=== PATIENT | male | born 1970 | race Two or more races ===

== ENCOUNTER 2019-05-07 23:43 | Inpatient (IN) | payer SELFPAY ==
[~2019-05-07] VITALS: Ht 180.3 cm; Wt 84.5 kg
[2019-05-08] VITALS (13 sets, daily range): BP systolic 78–112; BP diastolic 36–63
--- NOTE | 2019-05-08 00:19 | PHYS DOC ---
Past Medical History Past Medical History: No Pertinent History Past Surgical History: No Surgical History Alcohol Use: Occasionally Drug Use: None Adult General Chief Complaint Chief Complaint: ABDOMINAL PAIN HPI HPI Patient is a 49 year old presents with persistent right upper quadrant pain, tenderness for the past 24 hours. Pain is worse with palpation eating. Pain is nonradiating chest pain shortness of breath, shoulder back pain. Denies nausea vomiting, shortness of breath. No hematemesis coffee-ground emesis placed. No prior abdominal surgeries. No medications or therapy sticking prior to ED arrival.] Review of Systems Review of Systems Constitutional: Denies fever or chills [] Eyes: Denies change in visual acuity, redness, or eye pain [] HENT: Denies nasal congestion or sore throat [] Respiratory: Denies cough or shortness of breath [] Cardiovascular: No additional information not addressed in HPI [] GI: Denies abdominal pain, nausea, vomiting, bloody stools or diarrhea [] : Denies dysuria or hematuria [] Musculoskeletal: Denies back pain or joint pain [] Integument: Denies rash or skin lesions [] Neurologic: Denies headache, focal weakness or sensory changes [] Endocrine: Denies polyuria or polydipsia [] All other systems were reviewed and found to be within normal limits, except as documented in this note. Current Medications Current Medications Current Medications Medications (Trade) Dose Ordered Sig/Meghann Start Time Stop Time Status Last Admin Dose Admin Iohexol (Omnipaque 300 Mg/ml) 100 ml STK-MED ONCE 05/08/19 01:05 05/08/19 01:06 DC Piperacillin Sod/ Tazobactam Sod 4.5 gm/Sodium Chloride 100 ml @ 200 mls/hr 1X ONCE 05/08/19 02:00 05/08/19 02:29 UNV Allergies Allergies Allergies Coded Allergies Type Severity Reaction Last Updated Verified No Known Drug Allergies 05/07/19 No Physical Exam Physical Exam Constitutional: Well developed, well nourished, no acute distress, non-toxic appearance. [] HENT: Normocephalic, atraumatic, bilateral external ears normal, oropharynx mo ist, no oral exudates, nose normal. [] Eyes: PERRLA, EOMI, conjunctiva normal, no discharge. [] Neck: Normal range of motion, no tenderness, supple, no stridor. [] Cardiovascular:Heart rate regular rhythm, no murmur [] Lungs & Thorax: Bilateral breath sounds clear to auscultation [] Abdomen: Bowel sounds normal, soft, no tenderness, no masses, no pulsatile masses. [] Skin: Warm, dry, no erythema, no rash. [] Back: No tenderness, no CVA tenderness. [] Extremities: No tenderness, no cyanosis, no clubbing, ROM intact, no edema. [] Neurologic: Alert and oriented X 3, normal motor function, normal sensory function, no focal deficits noted. [] Psychologic: Affect normal, judgement normal, mood normal. [] Current Patient Data Vital Signs Vital Signs Date Time Temp Pulse Resp B/P (MAP) Pulse Ox O2 Delivery O2 Flow Rate FiO2 05/07/19 23:57 98.1 60 18 124/63 (83) 98 Room Air 98.1 Lab Values Laboratory Tests Test 05/08/19 00:05 05/08/19 00:15 White Blood Count 14.1 x10^3/uL (4.0-11.0) H Red Blood Count 4.77 x10^6/uL (4.30-5.70) Hemoglobin 14.0 g/dL (13.0-17.5) Hematocrit 40.6 % (39.0-53.0) Mean Corpuscular Volume 85 fL (79-100) Mean Corpuscular Hemoglobin 29 pg (25-35) Mean Corpuscular Hemoglobin Concent 34 g/dL (31-37) Red Cell Distribution Width 13.5 % (11.5-14.5) Platelet Count 256 x10^3/uL (140-400) Neutrophils (%) (Auto) 84 % (31-73) H Lymphocytes (%) (Auto) 8 % (24-48) L Monocytes (%) (Auto) 8 % (0-9) Eosinophils (%) (Auto) 1 % (0-3) Basophils (%) (Auto) 0 % (0-3) Neutrophils # (Auto) 11.9 x10^3/uL (1.8-7.7) H Lymphocytes # (Auto) 1.1 x10^3/uL (1.0-4.8) Monocytes # (Auto) 1.1 x10^3/uL (0.0-1.1) Eosinophils # (Auto) 0.1 x10^3/uL (0.0-0.7) Basophils # (Auto) 0.1 x10^3/uL (0.0-0.2) Sodium Level 139 mmol/L (136-145) Potassium Level 3.4 mmol/L (3.5-5.1) L Chloride Level 104 mmol/L (98-107) Carbon Dioxide Level 27 mmol/L (21-32) Anion Gap 8 (6-14) Blood Urea Nitrogen 10 mg/dL (8-26) Creatinine 0.8 mg/dL (0.7-1.3) Estimated GFR (Cockcroft-Gault) 103.6 BUN/Creatinine Ratio 13 (6-20) Glucose Level 123 mg/dL (70-99) H Calcium Level 8.8 mg/dL (8.5-10.1) Total Bilirubin 0.7 mg/dL (0.2-1.0) Aspartate Amino Transferase (AST) 14 U/L (15-37) L Alanine Aminotransferase (ALT) 17 U/L (16-63) Alkaline Phosphatase 56 U/L (46-116) Troponin I Quantitative < 0.017 ng/mL (0.000-0.055) Total Protein 7.3 g/dL (6.4-8.2) Albumin 3.7 g/dL (3.4-5.0) Albumin/Globulin Ratio 1.0 (1.0-1.7) Lipase 62 U/L (73-393) L Laboratory Tests 05/08/19 00:05 Laboratory Tests 05/08/19 00:15 EKG EKG [EKG: reviewed] Radiology/Procedures Radiology/Procedures [CT abdomen pelvis: Acute cholecystitis per radiology report] Course & Med Decision Making Course & Med Decision Making Pertinent Labs and Imaging studies reviewed. (See chart for details) [IV antibiotics given. Will admit to the hospitalist service with general surgical consult] Dragon Disclaimer Dragon Disclaimer This electronic medical record was generated, in whole or in part, using a voice recognition dictation system. Departure Departure Impression: Primary Impression: Acute cholecystitis Disposition: ADMITTED INPATIENT Condition: NIEVES VERAS DO May 08, 2019 00:19
[2019-05-08 00:24] LABS: BASO # 0.1 x10^3/uL (0.0-0.2); BASO % 0 % (0-3); EOS # 0.1 x10^3/uL (0.0-0.7); EOS % 1 % (0-3); HEMATOCRIT 40.6 % (39.0-53.0); LYMPH # 1.1 x10^3/uL (1.0-4.8); LYMPH % 8 % (24-48); MEAN CORPUSCULAR HEMOGLOBIN 29 pg (25-35); MEAN CORPUSCULAR HGB CONC 34 g/dL (31-37); MEAN CORPUSCULAR VOLUME 85 fL (79-100); MONO # 1.1 x10^3/uL (0.0-1.1); MONO % 8 % (0-9); NEUT # 11.9 x10^3/uL (1.8-7.7); NEUT % 84 % (31-73); PLATELET COUNT 256 x10^3/uL (140-400); RED BLOOD COUNT 4.77 x10^6/uL (4.30-5.70); RED CELL DISTRIBUTION WIDTH 13.5 % (11.5-14.5); WHITE BLOOD COUNT 14.1 x10^3/uL (4.0-11.0)
[2019-05-08 00:26] LABS: CALCIUM 8.8 mg/dL (8.5-10.1); CREATININE 0.8 mg/dL (0.7-1.3); GFR 103.6; POTASSIUM 3.4 mmol/L (3.5-5.1)
[2019-05-08 00:32] LABS: ALBUMIN 3.7 g/dL (3.4-5.0); TOTAL BILIRUBIN 0.7 mg/dL (0.2-1.0); TOTAL PROTEIN 7.3 g/dL (6.4-8.2)
[2019-05-08] MEDS ORDERED: IOHEXOL 300 MG/ML 100ML VIAL. ONE (01:05)
--- NOTE | 2019-05-08 01:49 | RAD ---
CT scan abdomen and pelvis with contrast 05/08/2019 CLINICAL HISTORY: Right upper quadrant abdominal pain. TECHNIQUE: After the intravenous administration of 75 cc of Omnipaque 300, contiguous, 5 mm axial sections were obtained through the abdomen and pelvis. One or more of the following individualized dose reduction techniques were utilized for this study: 1. Automated exposure control. 2. Adjustment of the mA and/or kV according to patient size. 3. Use of iterative reconstruction technique. FINDINGS: Images through the lung bases demonstrate minimal dependent subsegmental atelectasis bilaterally. The liver parenchyma has a decreased attenuation consistent with fatty infiltration. The spleen, pancreas, adrenal glands and kidneys are within normal limits. The abdominal aorta tapers normally. There is no evidence of bowel obstruction. Air and stool is seen throughout the colon. The appendix is well-visualized and is within normal limits. The gallbladder is distended. A 9 mm oval-shaped calcific density is seen in the expected location of the proximal cystic duct. The gallbladder wall is thickened. Pericholecystic fluid is seen. These findings are consistent with acute cholecystitis. The intra and extrahepatic bile ducts are not dilated. Images through the pelvis demonstrate the urinary bladder to be contracted. No free fluid is seen. Minimal S-shaped curvature of the thoracolumbar spine is noted. Degenerative changes are seen involving lower thoracic and mid and lower lumbar spine and both hips. IMPRESSION: Findings are seen consistent with acute cholecystitis. Electronically signed by: Trino Kathleen MD (05/08/2019 1:46 AM) [id number]
--- NOTE | 2019-05-08 01:50 | RAD ---
AP portable chest radiograph 05/08/2019 Clinical History: Chest pain. An AP erect portable digital radiograph of the chest was obtained. The cardiac and mediastinal silhouettes are within normal limits in size and configuration. No acute pulmonary infiltrate is seen. No pleural effusion or pneumothorax is noted. Mild degenerative changes are seen involving the thoracic spine. IMPRESSION: No acute abnormality is seen. Electronically signed by: Trino Kathleen MD (05/08/2019 1:47 AM) [facility]
[2019-05-08] MEDS ORDERED: PIP/TAZO PER PHARMACY MC PRN (02:15)
[2019-05-08] MEDS ORDERED: ONDANSETRON PF 4 MG/2 ML VIAL. IV PRN ×3 (02:15→12:00)
[2019-05-08] MEDS ORDERED: MORPHINE SULFATE 2 MG/ML VIAL. IV PRN ×2 (02:15→09:45)
[2019-05-08] MEDS ORDERED: PIPERACILLIN/TAZOBACTAM 4.5 GM in IV NORMAL SALINE 100ML 100 ML IV ONE (02:30)
[2019-05-08] MEDS: IV NORMAL SALINE 1000ML BAG 1,000 ML IV SCH ×3 (02:37→18:15)
[2019-05-08] MEDS ORDERED: PIPERACILLIN/TAZOBACTAM 4.5 GM in IV NORMAL SALINE 100ML 100 ML IV SCH (06:00)
[2019-05-08] MEDS ORDERED: BUPIVAC MPF-EPI 0.5%-1:200000 30 ML VIAL. ONE (09:00)
[2019-05-08] MEDS ORDERED: GLUCAGON,HUMAN RECOMBINANT 1 MG/ML VIAL. ONE (09:00)
[2019-05-08] MEDS ORDERED: SURGICEL HEMOSTAT 4X8 EACH. ONE (09:00)
[2019-05-08] MEDS ORDERED: IOHEXOL 300 MG/ML 50 ML VIAL. ONE (09:00)
--- NOTE | 2019-05-08 09:02 | PDOC2 ---
CONSULT Date of Consult Date of Consult DATE: 05/08/19 TIME: 08:58 Reason for Consult Reason for Consult: cholelithiasis, acute cholecystitis Referring Physician Referring Physician: NOEMY Identification/Chief Complaint Chief Complaint RUQ pain Source Source: Chart review, Patient History of Present Illness Reason for Visit: Mr Ng is a 49 yo gentleman with acute onset of RUQ pain yesterday early AM. Similar less severe attack a few weeks ago. Past Medical History Cardiovascular: No pertinent hx Pulmonary: No pertinent hx Renal/: No pertinent hx Past Surgical History Past Surgical History: No pertinent history Current Problem List Problem List Problems Medical Problems: (1) Acute cholecystitis Status: Acute Current Medications Current Medications Current Medications Iohexol (Omnipaque 300 Mg/ml) 100 ml STK-MED ONCE .ROUTE ; Start 05/08/19 at 01:05; Stop 05/08/19 at 01:06; Status DC Piperacillin Sod/ Tazobactam Sod 4.5 gm/Sodium Chloride 100 ml @ 200 mls/hr 1X ONCE IV Last administered on 05/08/19at 02:40; Start 05/08/19 at 02:30; Stop 05/08/19 at 02:59; Status DC Ondansetron HCl (Zofran) 4 mg PRN Q8HRS PRN IV NAUSEA/VOMITING; Start 05/08/19 at 02:15; Stop 05/09/19 at 02:14 Morphine Sulfate (Morphine Sulfate) 2 mg PRN Q2HR PRN IV PAIN Last administered on 05/08/19at 02:45; Start 05/08/19 at 02:15; Stop 05/09/19 at 02:14 Sodium Chloride 1,000 ml @ 125 mls/hr Q8H IV Last administered on 05/08/19at 02:37; Start 05/08/19 at 02:15; Stop 05/09/19 at 02:14 Piperacillin Sod/ Tazobactam Sod (Zosyn Per Pharmacy) 1 each PRN DAILY PRN MC S EE COMMENTS; Start 05/08/19 at 02:15 Piperacillin Sod/ Tazobactam Sod 4.5 gm/Sodium Chloride 100 ml @ 200 mls/hr Q6HRS IV Last administered on 05/08/19at 05:49; Start 05/08/19 at 06:00 Allergies Allergies: Coded Allergies: No Known Drug Allergies (Unverified , 05/07/19) ROS Gastrointestinal: Yes Abdominal Pain Physical Exam General: Alert, Oriented X3, No acute distress HEENT: Atraumatic Lungs: Normal air movement Heart: Regular rate Abdomen: Soft, Other (some mild TTP in the RUQ) Skin: Other (warm, dry) Vitals VITALS Vital Signs Date Time Temp Pulse Resp B/P (MAP) Pulse Ox O2 Delivery O2 Flow Rate FiO2 05/08/19 07:00 98.3 54 18 106/60 (75) 95 Room Air 98.3 Labs Labs Laboratory Tests Test 05/08/19 00:05 05/08/19 00:15 White Blood Count 14.1 x10^3/uL (4.0-11.0) Red Blood Count 4.77 x10^6/uL (4.30-5.70) Hemoglobin 14.0 g/dL (13.0-17.5) Hematocrit 40.6 % (39.0-53.0) Mean Corpuscular Volume 85 fL (79-100) Mean Corpuscular Hemoglobin 29 pg (25-35) Mean Corpuscular Hemoglobin Concent 34 g/dL (31-37) Red Cell Distribution Width 13.5 % (11.5-14.5) Platelet Count 256 x10^3/uL (140-400) Neutrophils (%) (Auto) 84 % (31-73) Lymphocytes (%) (Auto) 8 % (24-48) Monocytes (%) (Auto) 8 % (0-9) Eosinophils (%) (Auto) 1 % (0-3) Basophils (%) (Auto) 0 % (0-3) Neutrophils # (Auto) 11.9 x10^3/uL (1.8-7.7) Lymphocytes # (Auto) 1.1 x10^3/uL (1.0-4.8) Monocytes # (Auto) 1.1 x10^3/uL (0.0-1.1) Eosinophils # (Auto) 0.1 x10^3/uL (0.0-0.7) Basophils # (Auto) 0.1 x10^3/uL (0.0-0.2) Sodium Level 139 mmol/L (136-145) Potassium Level 3.4 mmol/L (3.5-5.1) Chloride Level 104 mmol/L (98-107) Carbon Dioxide Level 27 mmol/L (21-32) Anion Gap 8 (6-14) Blood Urea Nitrogen 10 mg/dL (8-26) Creatinine 0.8 mg/dL (0.7-1.3) Estimated GFR (Cockcroft-Gault) 103.6 BUN/Creatinine Ratio 13 (6-20) Glucose Level 123 mg/dL (70-99) Calcium Level 8.8 mg/dL (8.5-10.1) Total Bilirubin 0.7 mg/dL (0.2-1.0) Aspartate Amino Transf (AST/SGOT) 14 U/L (15-37) Alanine Aminotransferase (ALT/SGPT) 17 U/L (16-63) Alkaline Phosphatase 56 U/L (46-116) Troponin I Quantitative < 0.017 ng/mL (0.000-0.055) Total Protein 7.3 g/dL (6.4-8.2) Albumin 3.7 g/dL (3.4-5.0) Albumin/Globulin Ratio 1.0 (1.0-1.7) Lipase 62 U/L (73-393) Laboratory Tests Test 05/08/19 00:05 05/08/19 00:15 White Blood Count 14.1 x10^3/uL (4.0-11.0) Red Blood Count 4.77 x10^6/uL (4.30-5.70) Hemoglobin 14.0 g/dL (13.0-17.5) Hematocrit 40.6 % (39.0-53.0) Mean Corpuscular Volume 85 fL (79-100) Mean Corpuscular Hemoglobin 29 pg (25-35) Mean Corpuscular Hemoglobin Concent 34 g/dL (31-37) Red Cell Distribution Width 13.5 % (11.5-14.5) Platelet Count 256 x10^3/uL (140-400) Neutrophils (%) (Auto) 84 % (31-73) Lymphocytes (%) (Auto) 8 % (24-48) Monocytes (%) (Auto) 8 % (0-9) Eosinophils (%) (Auto) 1 % (0-3) Basophils (%) (Auto) 0 % (0-3) Neutrophils # (Auto) 11.9 x10^3/uL (1.8-7.7) Lymphocytes # (Auto) 1.1 x10^3/uL (1.0-4.8) Monocytes # (Auto) 1.1 x10^3/uL (0.0-1.1) Eosinophils # (Auto) 0.1 x10^3/uL (0.0-0.7) Basophils # (Auto) 0.1 x10^3/uL (0.0-0.2) Sodium Level 139 mmol/L (136-145) Potassium Level 3.4 mmol/L (3.5-5.1) Chloride Level 104 mmol/L (98-107) Carbon Dioxide Level 27 mmol/L (21-32) Anion Gap 8 (6-14) Blood Urea Nitrogen 10 mg/dL (8-26) Creatinine 0.8 mg/dL (0.7-1.3) Estimated GFR (Cockcroft-Gault) 103.6 BUN/Creatinine Ratio 13 (6-20) Glucose Level 123 mg/dL (70-99) Calcium Level 8.8 mg/dL (8.5-10.1) Total Bilirubin 0.7 mg/dL (0.2-1.0) Aspartate Amino Transf (AST/SGOT) 14 U/L (15-37) Alanine Aminotransferase (ALT/SGPT) 17 U/L (16-63) Alkaline Phosphatase 56 U/L (46-116) Troponin I Quantitative < 0.017 ng/mL (0.000-0.055) Total Protein 7.3 g/dL (6.4-8.2) Albumin 3.7 g/dL (3.4-5.0) Albumin/Globulin Ratio 1.0 (1.0-1.7) Lipase 62 U/L (73-393) Images Images CT done in ED is reviewed Assessment/Plan Assessment/Plan cholelithiasis, acute cholecystitis explained risks for cholecystectomy including but not limited to bleeding, infection, injury to bowel, liver, bile ducts with need for further surgery, possible open procedure, diarrhea post op questions answered he will proceed Thanks for consult MIC IBRAHIM MD May 08, 2019 09:02
[2019-05-08] MEDS ORDERED: ONDANSETRON PF 4 MG/2 ML VIAL. ONE (09:37)
[2019-05-08] MEDS ORDERED: LIDOCAINE 2% PF 5 ML VIAL. ONE (09:37)
[2019-05-08] MEDS ORDERED: PROPOFOL 20 ML IV ONE (09:37)
[2019-05-08] MEDS ORDERED: DEXAMETHASONE SOD PHOS 4 MG/ML VIAL ONE (09:37)
[2019-05-08] MEDS ORDERED: ROCURONIUM 50 MG/5 ML VIAL. ONE (09:37)
[2019-05-08] MEDS ORDERED: FAMOTIDINE 20 MG/2 ML VIAL ONE (09:37)
[2019-05-08] MEDS ORDERED: MIDAZOLAM HCL/PF 2 MG/2 ML VIAL. ONE (09:38)
[2019-05-08] MEDS ORDERED: GLYCOPYRROLATE 1 MG/5 ML VIAL. ONE (09:39)
[2019-05-08] MEDS ORDERED: fentaNYL PF VIAL 100 MCG/2 ML VIAL ONE ×2 (09:39→10:33)
[2019-05-08] MEDS ORDERED: NEOSTIGMINE METHYLSULFATE 5 MG/5 ML SYRINGE. ONE (09:40)
[2019-05-08] MEDS ORDERED: IV RINGERS,LACTATED 1000ML 1,000 ML IV SCH (09:42)
[2019-05-08] MEDS ORDERED: ePHEDrine PF IN SALINE 50 MG/10 ML SYRINGE. IV ONE (09:42)
[2019-05-08] MEDS ORDERED: HYDROmorphone 2 MG/ML VIAL IV PRN ×2 (09:45→12:00)
[2019-05-08] MEDS ORDERED: PROCHLORPERAZINE 10 MG/2 ML VIAL. IV PRN (09:45)
[2019-05-08] MEDS ORDERED: fentaNYL PF VIAL 100 MCG/2 ML VIAL IV PRN ×2 (09:45)
[2019-05-08] MEDS ORDERED: SEVOFLURANE 61 TO 120 MINUTES. IH ONE (10:08)
--- NOTE | 2019-05-08 11:26 | RAD ---
Examination: Operative cholangiogram History: Cholecystectomy. Procedure: Fluoroscopic images were provided during the procedure. The cystic duct has been catheterized and contrast has been injected. Findings: The common hepatic bile duct and common bile duct are patent without evidence of intraluminal filling defect or obstruction. Contrast empties normally into the duodenum. Impression: Normal operative cholangiogram. Total fluoroscopic time 0.29 minutes. Total fluoroscopic images 5. Electronically signed by: Jere Callowya MD (05/08/2019 11:23 AM) [facility]
[2019-05-08] MEDS ORDERED: IV NORMAL SALINE 1000ML BAG 1,000 ML IV SCH (11:52)
[2019-05-08] MEDS: POTASSIUM CL 20MEQ-0.45% NACL 1,000 ML IV SCH ×2 (11:52→21:52)
--- NOTE | 2019-05-08 11:59 | EKG ---
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
[2019-05-08] MEDS ORDERED: 0.9 % SODIUM CHLORIDE 10 ML DISP.SYRIN. IV PRN (12:00)
[2019-05-08] MEDS ORDERED: oxyCODONE/APAP 5/325 1 TAB TABLET PO PRN (12:00)
[2019-05-08] MEDS ORDERED: diphenhydrAMINE HCL 25 MG CAPSULE PO PRN (12:00)
[2019-05-08] MEDS ORDERED: DEXTROSE 50% 25 GM / 50ML DISP.SYRIN. IV PRN (12:00)
[2019-05-08] MEDS ORDERED: NALOXONE 0.4 MG/ML VIAL. IV PRN (12:00)
[2019-05-08] MEDS: PIPERACILLIN/TAZOBACTAM 3.375 GM in IV NORMAL SALINE 50ML 50 ML IV SCH ×2 (12:00→17:59)
--- NOTE | 2019-05-08 12:00 | PDOC ---
BRIEF OPERATIVE NOTE Date: May 08, 2019 Pre-Op Diagnosis cholelithiasis with acute cholecystitis Post-Op Diagnosis same Procedure Performed l/s cholecystectomy with cholangiograms Surgeon Angus Regional Sales Director Casi ZAMORA Anesthesia Type: General Blood Loss 10cc IV Fluid 900cc Specimens Obtained GB Findings large stone impacted in neck of GB, normal grams Complications none Operative Note WK # [id number] MIC IBRAHIM MD May 08, 2019 12:00
--- NOTE | 2019-05-08 12:16 | OP ---
DATE OF SURGERY: 05/08/2019 PREOPERATIVE DIAGNOSIS: Cholelithiasis with acute cholecystitis. POSTOPERATIVE DIAGNOSIS: Cholelithiasis with acute cholecystitis. PROCEDURE: Laparoscopic cholecystectomy with cholangiogram. SURGEON: Dr. Ibrahim. REPOSSESSION AGENT: NOAH Salas. ANESTHESIA: General endotracheal. ESTIMATED BLOOD LOSS: 10 mL. INTRAVENOUS FLUID: 900. DESCRIPTION OF PROCEDURE: The patient brought to the operating suite, given a general endotracheal anesthetic and the abdomen prepped and draped in the usual sterile fashion. A supraumbilical incision was infiltrated with local anesthetic, incised and a 5 mm Visiport used to safely gain access into the abdominal cavity, taking care to avoid injury to abdominal contents. Pneumoperitoneum established. Camera inserted, which revealed an edematous distended gallbladder and a modicum of turbid fluid in the right upper quadrant. No other abnormalities seen. With the table in reverse Trendelenburg rolled to the left, the epigastric, midclavicular, and lateral ports were placed under direct vision. The gallbladder was aspirated of approximately 150 mL of bile to allow grasping of the fundus, so it could be retracted superolaterally. The cystic duct and cystic artery were carefully exposed. The duct was clipped on the gallbladder side. Cholangiograms were made. These were normal. In light of this, the catheter was removed. The cystic duct was clipped x 3 and divided, taking care to avoid injury or compromise the common duct. Cystic artery was clipped and divided and the gallbladder freed from the bed with cautery dissection and placed in an EndoCatch bag. Good hemostasis was present in the fossa. No evidence of bile leak seen. A 19-[place] round Juan Carlos drain was brought through the epigastric port out the lateral ports, sewn to the skin with a silk stitch and left in the subhepatic space for postoperative drainage. Gallbladder delivered through the epigastric incision after it was enlarged to allow delivery of the edematous gallbladder and large stone. This was then closed with a running stitch of 0 Vicryl. At 6 cm of water, no bleeding from the epigastric closure or from the midclavicular port site after its removal or from the drain site. Table returned to level. Camera port removed, no bleeding seen. Skin incisions closed with subcuticular 4-0 Monocryl. Steri-Strips and sterile dressings applied. The patient was awakened from his anesthetic and taken to the recovery room in satisfactory condition. MIC IBRAHIM MD DR: QUINTON/xiang JOB#: [id number] / [id number]
--- NOTE | 2019-05-08 13:51 | HP ---
ADMIT DATE: 05/08/2019 CHIEF COMPLAINT: Abdominal pain. HISTORY OF PRESENT ILLNESS: The patient is a pleasant 49-year-old male who presented with abdominal pain, rated as 7/10. He has associated nausea, been occurring for several days, food made it worse, sitting still makes it better, home meds did not help. Imaging studies confirmed cholecystitis. He has now been taken for emergent laparoscopic cholecystectomy. He is being examined in room 414 where he is postop. PAST MEDICAL HISTORY: Benign. ALLERGIES: None. FAMILY HISTORY: Hypertension. SOCIAL HISTORY: Does not drink, smoke or take drugs. He works in [employer]. MEDICATIONS: Reviewed, please refer to the MRAD. REVIEW OF SYSTEMS: GENERAL: No history of weight change, weakness or fevers. SKIN: No bruising, hair changes or rashes. EYES: No blurred, double or loss of vision. NOSE AND THROAT: No history of nosebleeds, hoarseness or sore throat. HEART: No history of palpitations, chest pain or shortness of breath on exertion. LUNGS: Denies cough, hemoptysis, wheezing or shortness of breath. GASTROINTESTINAL: Denies changes in appetite, nausea, vomiting, diarrhea or constipation. GENITOURINARY: No history of frequency, urgency, hesitancy or nocturia. NEUROLOGIC: Denies history of numbness, tingling, tremor or weakness. PSYCHIATRIC: No history of panic, anxiety or depression. ENDOCRINE: No history of heat or cold intolerance, polyuria or polydipsia. EXTREMITIES: Denies muscle weakness, joint pain, pain on walking or stiffness. PHYSICAL EXAMINATION: VITAL SIGNS: Stable. GENERAL: He is alert, cooperative. HEART: Normal S1, S2. LUNGS: Clear. ABDOMEN: Soft, nontender. There are 3 trocars sites. They appear to be clean, dry and intact. There is a SHARI drain as well. EXTREMITIES: No edema. Pedal pulses are intact. ENDOCRINE: No thyromegaly. LYMPHATICS: No cervical nodes. HEMATOPOIETIC: No bruising. PSYCHIATRIC: He is a little depressed probably about being in the hospital, he wants to go home. LABORATORY AND DIAGNOSTIC DATA: White count is 14. ASSESSMENT AND PLAN: Cholecystitis, postop laparoscopic cholecystectomy. For now, we will do wound care, IV Zosyn, p.r.n. Zofran, p.r.n. narcotics, home meds, IV fluids, DVT prophylaxis, full code. JORGE LUIS BAUMANN DO DR: BALAJI/xiang JOB#: [id number] / [id number]
[2019-05-08] MEDS: oxyCODONE/APAP 5/325 1 TAB TABLET PO PRN (20:00)
[2019-05-08] MEDS ORDERED: ENOXAPARIN 40 MG/0.4 ML SYRINGE. SQ SCH (21:00)
[2019-05-08] MEDS: DOCUSATE SODIUM 100 MG CAPSULE. PO SCH (21:45)
[2019-05-09] MEDS: PIPERACILLIN/TAZOBACTAM 3.375 GM in IV NORMAL SALINE 50ML 50 ML IV SCH ×3 (00:41→11:48)
[2019-05-09 03:00] VITALS: BP 89/42
[2019-05-09] MEDS: oxyCODONE/APAP 5/325 1 TAB TABLET PO PRN (06:08)
[2019-05-09] MEDS: POTASSIUM CL 20MEQ-0.45% NACL 1,000 ML IV SCH (06:08)
[2019-05-09 07:00] VITALS: BP 95/56
[2019-05-09 08:00] LABS: BASO % 0 % (0-3); EOS % 0 % (0-3); HEMATOCRIT 38.7 % (39.0-53.0); HEMOGLOBIN 13.2 g/dL (13.0-17.5); LYMPH # 0.7 x10^3/uL (1.0-4.8); LYMPH % 7 % (24-48); MEAN CORPUSCULAR HEMOGLOBIN 30 pg (25-35); MEAN CORPUSCULAR HGB CONC 34 g/dL (31-37); MEAN CORPUSCULAR VOLUME 87 fL (79-100); MONO # 0.7 x10^3/uL (0.0-1.1); MONO % 7 % (0-9); NEUT # 9.2 x10^3/uL (1.8-7.7); NEUT % 86 % (31-73); PLATELET COUNT 200 x10^3/uL (140-400); RED BLOOD COUNT 4.44 x10^6/uL (4.30-5.70); RED CELL DISTRIBUTION WIDTH 13.4 % (11.5-14.5); WHITE BLOOD COUNT 10.6 x10^3/uL (4.0-11.0)
[2019-05-09 08:23] LABS: ALBUMIN/GLOBULIN RATIO 0.8 (1.0-1.7); CALCIUM 8.1 mg/dL (8.5-10.1); CREATININE 0.8 mg/dL (0.7-1.3); GFR 103.6; POTASSIUM 3.8 mmol/L (3.5-5.1); TOTAL BILIRUBIN 0.8 mg/dL (0.2-1.0); TOTAL PROTEIN 6.6 g/dL (6.4-8.2)
[2019-05-09] MEDS: DOCUSATE SODIUM 100 MG CAPSULE. PO SCH (08:48)
--- NOTE | 2019-05-09 09:38 | PDOC ---
SURGICAL PROGRESS NOTE Subjective tolerating diet pain managed with meds urinating Vital Signs Vital Signs Date Time Temp Pulse Resp B/P (MAP) Pulse Ox O2 Delivery O2 Flow Rate FiO2 05/09/19 07:52 16 Room Air 05/09/19 07:00 98.1 50 95/56 (69) 97 98.1 05/08/19 16:00 2.0 I&O Intake and Output 05/09/19 07:00 Intake Total 1050 ml Output Total 85 ml Balance 965 ml Intake Oral 350 ml IV Total 700 ml Output Drainage Total 75 ml Estimated Blood Loss 10 ml # Voids 2 General: Alert, Oriented X3, Cooperative, No acute distress Abdomen: Soft, Other (ND, incision dressings dry, darcy serous) Labs Laboratory Tests Test 05/08/19 00:05 05/08/19 00:15 05/09/19 07:02 White Blood Count 14.1 x10^3/uL (4.0-11.0) 10.6 x10^3/uL (4.0-11.0) Red Blood Count 4.77 x10^6/uL (4.30-5.70) 4.44 x10^6/uL (4.30-5.70) Hemoglobin 14.0 g/dL (13.0-17.5) 13.2 g/dL (13.0-17.5) Hematocrit 40.6 % (39.0-53.0) 38.7 % (39.0-53.0) Mean Corpuscular Volume 85 fL (79-100) 87 fL (79-100) Mean Corpuscular Hemoglobin 29 pg (25-35) 30 pg (25-35) Mean Corpuscular Hemoglobin Concent 34 g/dL (31-37) 34 g/dL (31-37) Red Cell Distribution Width 13.5 % (11.5-14.5) 13.4 % (11.5-14.5) Platelet Count 256 x10^3/uL (140-400) 200 x10^3/uL (140-400) Neutrophils (%) (Auto) 84 % (31-73) 86 % (31-73) Lymphocytes (%) (Auto) 8 % (24-48) 7 % (24-48) Monocytes (%) (Auto) 8 % (0-9) 7 % (0-9) Eosinophils (%) (Auto) 1 % (0-3) 0 % (0-3) Basophils (%) (Auto) 0 % (0-3) 0 % (0-3) Neutrophils # (Auto) 11.9 x10^3/uL (1.8-7.7) 9.2 x10^3/uL (1.8-7.7) Lymphocytes # (Auto) 1.1 x10^3/uL (1.0-4.8) 0.7 x10^3/uL (1.0-4.8) Monocytes # (Auto) 1.1 x10^3/uL (0.0-1.1) 0.7 x10^3/uL (0.0-1.1) Eosinophils # (Auto) 0.1 x10^3/uL (0.0-0.7) 0.0 x10^3/uL (0.0-0.7) Basophils # (Auto) 0.1 x10^3/uL (0.0-0.2) 0.0 x10^3/uL (0.0-0.2) Sodium Level 139 mmol/L (136-145) 136 mmol/L (136-145) Potassium Level 3.4 mmol/L (3.5-5.1) 3.8 mmol/L (3.5-5.1) Chloride Level 104 mmol/L (98-107) 102 mmol/L (98-107) Carbon Dioxide Level 27 mmol/L (21-32) 25 mmol/L (21-32) Anion Gap 8 (6-14) 9 (6-14) Blood Urea Nitrogen 10 mg/dL (8-26) 13 mg/dL (8-26) Creatinine 0.8 mg/dL (0.7-1.3) 0.8 mg/dL (0.7-1.3) Estimated GFR (Cockcroft-Gault) 103.6 103.6 BUN/Creatinine Ratio 13 (6-20) 16 (6-20) Glucose Level 123 mg/dL (70-99) 129 mg/dL (70-99) Calcium Level 8.8 mg/dL (8.5-10.1) 8.1 mg/dL (8.5-10.1) Total Bilirubin 0.7 mg/dL (0.2-1.0) 0.8 mg/dL (0.2-1.0) Aspartate Amino Transf (AST/SGOT) 14 U/L (15-37) 64 U/L (15-37) Alanine Aminotransferase (ALT/SGPT) 17 U/L (16-63) 99 U/L (16-63) Alkaline Phosphatase 56 U/L (46-116) 83 U/L (46-116) Troponin I Quantitative < 0.017 ng/mL (0.000-0.055) Total Protein 7.3 g/dL (6.4-8.2) 6.6 g/dL (6.4-8.2) Albumin 3.7 g/dL (3.4-5.0) 3.0 g/dL (3.4-5.0) Albumin/Globulin Ratio 1.0 (1.0-1.7) 0.8 (1.0-1.7) Lipase 62 U/L (73-393) Laboratory Tests Test 05/09/19 07:02 White Blood Count 10.6 x10^3/uL (4.0-11.0) Red Blood Count 4.44 x10^6/uL (4.30-5.70) Hemoglobin 13.2 g/dL (13.0-17.5) Hematocrit 38.7 % (39.0-53.0) Mean Corpuscular Volume 87 fL (79-100) Mean Corpuscular Hemoglobin 30 pg (25-35) Mean Corpuscular Hemoglobin Concent 34 g/dL (31-37) Red Cell Distribution Width 13.4 % (11.5-14.5) Platelet Count 200 x10^3/uL (140-400) Neutrophils (%) (Auto) 86 % (31-73) Lymphocytes (%) (Auto) 7 % (24-48) Monocytes (%) (Auto) 7 % (0-9) Eosinophils (%) (Auto) 0 % (0-3) Basophils (%) (Auto) 0 % (0-3) Neutrophils # (Auto) 9.2 x10^3/uL (1.8-7.7) Lymphocytes # (Auto) 0.7 x10^3/uL (1.0-4.8) Monocytes # (Auto) 0.7 x10^3/uL (0.0-1.1) Eosinophils # (Auto) 0.0 x10^3/uL (0.0-0.7) Basophils # (Auto) 0.0 x10^3/uL (0.0-0.2) Sodium Level 136 mmol/L (136-145) Potassium Level 3.8 mmol/L (3.5-5.1) Chloride Level 102 mmol/L (98-107) Carbon Dioxide Level 25 mmol/L (21-32) Anion Gap 9 (6-14) Blood Urea Nitrogen 13 mg/dL (8-26) Creatinine 0.8 mg/dL (0.7-1.3) Estimated GFR (Cockcroft-Gault) 103.6 BUN/Creatinine Ratio 16 (6-20) Glucose Level 129 mg/dL (70-99) Calcium Level 8.1 mg/dL (8.5-10.1) Total Bilirubin 0.8 mg/dL (0.2-1.0) Aspartate Amino Transf (AST/SGOT) 64 U/L (15-37) Alanine Aminotransferase (ALT/SGPT) 99 U/L (16-63) Alkaline Phosphatase 83 U/L (46-116) Total Protein 6.6 g/dL (6.4-8.2) Albumin 3.0 g/dL (3.4-5.0) Albumin/Globulin Ratio 0.8 (1.0-1.7) Problem List Problems Medical Problems: (1) Acute cholecystitis Status: Acute Assessment/Plan s/p lap tien ok to tn home after lunch remove drain prior to discharge CANDACE WORRELL APRN May 09, 2019 09:38
[2019-05-09 11:00] VITALS: BP 147/84
[2019-05-09 11:00] LABS: % BANDS 1 % (0-9); % LYMPHS 9 % (24-48); % MONOS 5 % (0-10); % SEGS 85 % (35-66)
[2019-05-09 11:01] LABS: PLT ESTIMATE ADEQUATE (ADEQUATE)
--- NOTE | 2019-05-09 11:18 | DS ---
DATE OF DISCHARGE: 05/09/2019 ADMISSION DIAGNOSIS: Cholecystitis. DISCHARGE DIAGNOSIS: Postop day #1 laparoscopic cholecystectomy. HOSPITAL COURSE: The patient is a pleasant 49-year-old male who presented with cholecystitis. He was admitted. He was taken to surgery for laparoscopic cholecystectomy. Today, he looks great. Heart tones are normal. Lungs are clear. Abdomen has got a clean, dry and intact dressing with a right lower quadrant SHARI drain. Extremities, no edema. We plan to discharge if okay with General Surgery. DISPOSITION: Home. ACTIVITY: As tolerated. DIET: Low sodium. MEDICATIONS: Please see the MRAD. TOTAL TIME: 33 minutes. JORGE LUIS BAUMANN DO DR: BALAJI/xiang JOB#: [id number] / [id number]
--- NOTE | 2019-05-09 12:48 | NUR ---
Patients R SHARI drain was dc/d per 's orders by this RN. Patient tolerated this well.
--- NOTE | 2019-05-09 13:07 | NUR ---
Discharge instructions and belongings reviewed with patient, verbalized understanding. Patient was escorted out of hospital via wheelchair by Jenna CARTWRIGHT accompanied by his daughter.
[2019-05-09] MEDS ORDERED: LACTOBACILLUS RHAMNOSUS GG 1 CAPSULE. PO SCH (21:00)
--- NOTE | 2019-05-10 14:07 | PATHOLOGY ---
[facility] Accession Number: [id number] . 01 Material submitted: . gallbladder - GALLBLADDER . 01 Clinical history: . None provided . 02 Diagnosis: Gallbladder, laparoscopic cholecystectomy: - Cholelithiasis. - Acute and chronic cholecystitis with increased eosinophils. - Reactive changes of gallbladder neck lymph nodes. ([facility] 05/10/2019) P/05/10/2019 . 02 Comment: There is no evidence of malignancy. ([facility] 05/10/2019) . 02 Electronically signed: . Jac Kelley MD, Pathologist NPI- [id number] . 01 Gross description: . The specimen is received in formalin labeled "Diazmendoza, Absalon, gallbladder" and consists of a previously opened pink-kilaptrick, edematous, and hemorrhagic gallbladder measuring 13.3 cm in length and up to 4.7 cm in diameter. The margin is inked black. 2 green-brown multifaceted calculi are present measuring 2.3 cm and 2.5 cm. The mucosa is kilpatrick-brown, gangrenous, necrotic with an average wall thickness of 0.1 cm. No masses are identified. Adjacent the gallbladder neck are 2 lymph node candidates measuring 0.6 cm and 1.3 cm. 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 (SDY; 05/09/2019) SYU/SYU . 02 Pathologist provided ICD-10: K80.12 . 02 CPT . 471635 Specimen Comment: A courtesy copy of this report has been sent to Specimen Comment: [phone], , . Specimen Comment: Report sent to ,DR GRACIA / Performed at: 01 [facility] [address], [place], [place] [id number] MD Darrell Suggs MD Phone: [phone] Performed at: 02 [facility] [address] [place], [place] [id number] MD Jac Kelley MD Phone: [phone]
== END 2019-05-09 13:08 | disposition home or self-care (01) | DRG 419 ==
LOC: ER 23:43 → 4 NORTH 05-08 02:20
PROVIDERS: ADMIT Family Medicine; ATTEND Family Medicine
PROC: BF101ZZ Fluoroscopy of Bile Ducts using Low Osmolar Contrast (ICD-10-PCS; 2019-05-08)
PROC: 0FT44ZZ Resection of Gallbladder, Percutaneous Endoscopic Approach (ICD-10-PCS; principal; 2019-05-08 09:36)
DX: K80.00 Calculus of gallbladder with acute cholecystitis without obstruction (principal); K82.8 Other specified diseases of gallbladder; Z82.49 Family history of ischemic heart disease and other diseases of the circulatory system; Z79.899 Other long term (current) drug therapy
CPT/HCPCS: 36415; 71045; 74177; 74300; 80053; 83690; 84484; 85007; 85025; 93005; 96374; 96375; A7015; J0171; J1100; J1170; J1610; J1650; J2001; J2250; J2270; J2405; J2543; J2704; J2710; J3010; J3490; J7030; J7120; Q9967; 99285-25

== ENCOUNTER 2021-08-22 09:32 | Emergency (ER) | payer OTHER ==
[~2021-08-22] VITALS: Ht 180.3 cm; Wt 73.4 kg
[2021-08-22] MEDS ORDERED: NITROGLYCERIN SUBLINGUAL 0.4 MG BOTTLE OF 25. SL PRN (10:30)
--- NOTE | 2021-08-22 10:31 | EKG ---
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
--- NOTE | 2021-08-22 10:31 | PHYS DOC ---
Past Medical History Past Medical History: No Pertinent History Past Surgical History: Cholecystectomy Smoking Status: Never Smoker Alcohol Use: None Drug Use: None General Adult EDM: Chief Complaint: MULTIPLE COMPLAINTS HPI: HPI: Patient is a 51 year old male who presents with chest pain. Absalon says that for the past week he has been having increased trouble swallowing and some burning and pressure in the epigastric region, as well as loss of appetite. Prior to this week he has not had smiliar episodes of pain and difficulty swallowing. The pain radiates nowhere and Typically, he is able to get rid of this pain by taking a sip of water after eating. This morning he was eating a burrito and felt that a bite or two got stuck in his throat. He tried to drink coffee but was unable to make "the food move" and the burning and pressure increased to the point that he came to the ED. In the parking lot, he had an episode of emesis and he said this was the first relief he had. Since being admitted to the ED he said he still has some pressure and burning but is feeling much better. He says that he has been burping frequently and this is helping with the pain. Review of Systems: Review of Systems: Fourteen body systems of review of systems have been reviewed. See HPI for pertinent positives and negative responses, other vazquez all other systems are negative, non-pertinent or non-contributory Heart Score: C/O Chest Pain: Yes HEART Score for Chest Pain: HEART Score for Chest Pain Response (Comments) Value History Slighlty/Non-Suspicious 0 ECG Normal 0 Age < 45 0 Risk Factors No Risk Factors 0 Troponin < Normal Limit 0 Total 0 Risk Factors: Risk Factors: DM, Current or recent (<one month) smoker, HTN, HLP, family history of CAD, obesity. Risk Scores: Score 0 - 3: 2.5% MACE over next 6 weeks - Discharge Home Score 4 - 6: 20.3% MACE over next 6 weeks - Admit for Clinical Observation Score 7 - 10: 72.7% MACE over next 6 weeks - Early Invasive Strategies Allergies: Allergies: Allergies Coded Allergies Type Severity Reaction Last Updated Verified No Known Drug Allergies 05/07/19 No Physical Exam: PE: Constitutional: Well developed, well nourished, no acute distress, non-toxic appearance. HENT: Normocephalic, atraumatic, bilateral external ears normal, oropharynx moist, no oral exudates, nose normal. Eyes: PERRLA, EOMI, conjunctiva normal, no discharge. Neck: Normal range of motion, no tenderness, supple, no stridor. Cardiovascular: Heart rate regular, sinus rhythm, no murmurs rubs or gallops Lungs & Thorax: Bilateral breath sounds clear to auscultation Abdomen: Bowel sounds normal, soft, no tenderness, no masses, no pulsatile masses. Nonsurgical abdomen, no peritoneal signs Skin: Warm, dry, no erythema, no rash. Back: No tenderness, no CVA tenderness. Extremities: No tenderness, no cyanosis, no clubbing, ROM intact, no edema. Neurologic: Alert and oriented X 3, grossly normal motor & sensory function, no focal deficits noted. Psychologic: Anxious affect and mood Current Patient Data: Labs: Laboratory Tests Test 08/22/21 10:20 White Blood Count 7.6 x10^3/uL Red Blood Count 4.84 x10^6/uL Hemoglobin 14.6 g/dL Hematocrit 41.4 % Mean Corpuscular Volume 86 fL Mean Corpuscular Hemoglobin 30 pg Mean Corpuscular Hemoglobin Concent 35 g/dL Red Cell Distribution Width 12.5 % Platelet Count 291 x10^3/uL Neutrophils (%) (Auto) 86 % Lymphocytes (%) (Auto) 8 % Monocytes (%) (Auto) 6 % Eosinophils (%) (Auto) 1 % Basophils (%) (Auto) 0 % Neutrophils # (Auto) 6.5 x10^3/uL Lymphocytes # (Auto) 0.6 x10^3/uL Monocytes # (Auto) 0.4 x10^3/uL Eosinophils # (Auto) 0.1 x10^3/uL Basophils # (Auto) 0.0 x10^3/uL Sodium Level 138 mmol/L Potassium Level 3.4 mmol/L Chloride Level 103 mmol/L Carbon Dioxide Level 24 mmol/L Anion Gap 11 Blood Urea Nitrogen 8 mg/dL Creatinine 0.8 mg/dL Estimated GFR (Cockcroft-Gault) 102.7 BUN/Creatinine Ratio 10 Glucose Level 124 mg/dL Calcium Level 8.8 mg/dL Total Bilirubin 0.9 mg/dL Aspartate Amino Transf (AST/SGOT) 16 U/L Alanine Aminotransferase (ALT/SGPT) 18 U/L Alkaline Phosphatase 68 U/L Troponin I High Sensitivity < 4 ng/L Total Protein 7.2 g/dL Albumin 3.6 g/dL Albumin/Globulin Ratio 1.0 Lipase 40 U/L Current Medications Medications (Trade) Dose Ordered Sig/Meghann Route PRN Reason Start Time Stop Time Status Last Admin Dose Admin Aspirin (Lulú Aspirin) 325 mg 1X ONCE PO 08/22/21 11:00 08/22/21 11:01 DC 08/22/21 10:35 Nitroglycerin (Nitrostat) 0.4 mg PRN Q5MIN PRN SL CP RATING > 1/10 08/22/21 10:30 08/23/21 10:29 08/22/21 11:00 Multi-Ingredient Mouthwash/Gargle (Gi Cocktail) 20 ml 1X ONCE SWSW 08/22/21 12:15 08/22/21 12:16 DC 08/22/21 11:56 Vital Signs: Vital Signs Date Time Temp Pulse Resp B/P (MAP) Pulse Ox O2 Delivery O2 Flow Rate FiO2 08/22/21 09:36 98.1 79 18 143/67 (92) 100 Room Air 98.1 EKG: EKG: EKG ordered and interpreted by myself at 0942 hrs. is sinus rhythm at 86 bpm, unremarkable intervals, left axis deviation, no acute ischemic findings, no STEMI Repeat EKG ordered and interpreted by myself at 1034 hrs. as sinus rhythm at 77 bpm, unremarkable intervals, no axis deviation, no acute ischemic findings, no STEMI Radiology/Procedures: Radiology/Procedures: EXAM: Chest, single view. HISTORY: Pain. COMPARISON: 05/08/2019 FINDINGS: Frontal views of the chest are obtained. There is no infiltrate, pleural effusion or pneumothorax. The heart is normal in size. There are circumscribed nodules overlying the bilateral thorax due to nipple shadows. IMPRESSION: No acute pulmonary finding. Electronically signed by: Diane Dunn MD (08/22/2021 10:50 AM) [id number] Course & Med Decision Making: Course & Med Decision Making ABCs unremarkable. I disclosed entirety of ER findings and discussed most likely diagnosis of atypical chest pain. Other diagnoses were discussed with patient such as ACS, aortic aneurysm, dissection, pulmonary embolism and other emergent causes of chest pain but all deemed less likely causes of patient's presentation. Patient's symptoms completely resolved after GI cocktail administration. Disclose likely GI in etiology. Plan of care discussed at length with need for close outpatient follow-up to review today's ER visit stressed. Strict return precautions were also discussed at length with good understanding verbalized by patient. Patient voiced understanding and agreement with the plan. Patient knows to come back for repeat evaluation if concerning signs or symptoms present prior to outpatient follow-up. Hemodynamically stable, ambulatory and well-appearing at time of disposition. Dragon Disclaimer: Dragon Disclaimer: This electronic medical record was generated, in whole or in part, using a voice recognition dictation system. Departure Departure Impression: Primary Impression: Epigastric pain Disposition: HOME / SELF CARE / HOMELESS Condition: IMPROVED Referrals: NO PCP (PCP) BETHANY HERRING MD Patient Instructions: Abdominal Pain, Gastroesophageal Reflux Disease, Adult Additional Instructions: You were seen for abdominal pain. We are putting you on a medication to reduce your stomach acid levels. You should avoid alcohol, spicy foods, or NSAIDs as these can exacerbate your symptoms. You should follow up with the medicine clinic or your primary medical doctor for further evaluation and treatment. Return to the ED if you develop worsening pain, fever, black or bloody stools, or any other new or concerning symptoms. The medicine we started you on can take a few days to work fully. Scripts Famotidine (PEPCID) 20 Mg Tablet 20 MG PO BID for 30 Days, #60 TAB Prov: CA CULP DO 08/22/21 CA CULP DO Aug 22, 2021 10:31
[2021-08-22 10:38] LABS: BASO % 0 % (0-3); EOS # 0.1 x10^3/uL (0.0-0.7); EOS % 1 % (0-3); HEMATOCRIT 41.4 % (39.0-53.0); HEMOGLOBIN 14.6 g/dL (13.0-17.5); LYMPH # 0.6 x10^3/uL (1.0-4.8); LYMPH % 8 % (24-48); MEAN CORPUSCULAR HEMOGLOBIN 30 pg (25-35); MEAN CORPUSCULAR HGB CONC 35 g/dL (31-37); MEAN CORPUSCULAR VOLUME 86 fL (79-100); MONO # 0.4 x10^3/uL (0.0-1.1); MONO % 6 % (0-9); NEUT # 6.5 x10^3/uL (1.8-7.7); NEUT % 86 % (31-73); PLATELET COUNT 291 x10^3/uL (140-400); RED BLOOD COUNT 4.84 x10^6/uL (4.30-5.70); RED CELL DISTRIBUTION WIDTH 12.5 % (11.5-14.5); WHITE BLOOD COUNT 7.6 x10^3/uL (4.0-11.0)
--- NOTE | 2021-08-22 10:52 | RAD ---
EXAM: Chest, single view. HISTORY: Pain. COMPARISON: 05/08/2019 FINDINGS: Frontal views of the chest are obtained. There is no infiltrate, pleural effusion or pneumo thorax. The heart is normal in size. There are circumscribed nodules overlying the bilateral thorax d ue to nipple shadows. IMPRESSION: No acute pulmonary finding. Electronically signed by: Diane Dunn MD (08/22/2021 10:50 AM) [id number]
[2021-08-22 10:59] LABS: CALCIUM 8.8 mg/dL (8.5-10.1); CREATININE 0.8 mg/dL (0.7-1.3); GFR 102.7; POTASSIUM 3.4 mmol/L (3.5-5.1)
[2021-08-22] MEDS ORDERED: ASPIRIN 325 MG TABLET PO ONE (11:00)
[2021-08-22 11:03] LABS: ALBUMIN 3.6 g/dL (3.4-5.0); TOTAL BILIRUBIN 0.9 mg/dL (0.2-1.0); TOTAL PROTEIN 7.2 g/dL (6.4-8.2)
--- NOTE | 2021-08-22 11:24 | EKG ---
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
[2021-08-22 12:06] VITALS: BP 136/80
[2021-08-22] MEDS ORDERED: LIDO:MAALOX 1:1 20 ML SINGLE DOSE. SWSW ONE (12:15)
[2021-08-22] MEDS ORDERED: FAMO-63 PO (12:24)
== END 2021-08-22 12:37 | disposition home or self-care (01) ==
LOC: ER 09:32
DX: R10.13 Epigastric pain (principal); R07.89 Other chest pain; R63.0 Anorexia; R13.10 Dysphagia, unspecified; Z90.49 Acquired absence of other specified parts of digestive tract
CPT/HCPCS: 36415; 71045; 80053; 83690; 84484; 85025; 93005; 99285

== ENCOUNTER 2021-08-30 10:28 | Inpatient (IN) | payer OTHER ==
[~2021-08-30] VITALS: Ht 180.3 cm; Wt 71.5 kg
[~2021-08-30 10:28] MED LIST: FAMO-63 PO
--- NOTE | 2021-08-30 10:52 | PHYS DOC ---
Past Medical History Past Medical History: No Pertinent History Past Surgical History: Cholecystectomy Smoking Status: Never Smoker Alcohol Use: None Drug Use: None General Adult EDM: Chief Complaint: ABDOMINAL PAIN HPI: HPI: 51-year-old male presents the emergency department with complaints of esophageal food bolus and feelings that he cannot eat or drink without vomiting secondary to a blockage in his esophagus. He notes that this started gradually about 2 weeks ago and has progressed to the point where every time he eats or drinks he regurgitates and vomits it back up. He notes that he is also at 20 pounds of weight over the last 2 weeks because he is not eating or drinking properly. He called GI to set up an appointment to get an EGD performed, which is now scheduled for next Thursday. The patient has been taking Protonix and Pepcid at home without relief of pain. The patient denies fever, chills, chest pain, shortness of breath, abdominal pain, urinary symptoms, cough, recent trauma, or any other complaints. He has only travelled to the [facility] in the past 1 year in May 2021. Review of Systems: Review of Systems: Constitutional: Negative except what was mentioned in HPI. Eyes: Negative except what was mentioned in HPI. HENT: Negative except what was mentioned in HPI. Respiratory: Negative except what was mentioned in HPI. Cardiovascular: Negative except what was mentioned in HPI. GI: Negative except what was mentioned in HPI. : Negative except what was mentioned in HPI. Musculoskeletal: Negative except what was mentioned in HPI. Integument: Negative except what was mentioned in HPI. Neurologic: Negative except what was mentioned in HPI. Heart Score: C/O Chest Pain: No Allergies: Allergies: Allergies Coded Allergies Type Severity Reaction Last Updated Verified No Known Drug Allergies 05/07/19 No Physical Exam: PE: Constitutional: No acute distress, non-toxic appearance. HENT: Atraumatic, bilateral external ears normal, nose normal. Eyes: PERRLA, EOMI, conjunctiva normal, no discharge. Neck: Normal range of motion, supple, no stridor. Cardiovascular: Heart rate regular rhythm. 2+ radial pulses Lungs & Thorax: No respiratory distress, symmetrical expansion. Abdomen: Soft, no tenderness Skin: Warm, dry. Extremities: No tenderness, no cyanosis, ROM intact, no edema. Neurologic: Alert and oriented X 3, normal motor function, normal sensory function, no focal deficits noted. Non ataxic gait. GCS 15. Psychologic: Affect normal, judgment normal, mood normal. Current Patient Data: Labs: Laboratory Tests Test 08/30/21 10:59 White Blood Count 7.7 x10^3/uL (4.0-11.0) Red Blood Count 5.25 x10^6/uL (4.30-5.70) Hemoglobin 15.3 g/dL (13.0-17.5) Hematocrit 45.7 % (39.0-53.0) Mean Corpuscular Volume 87 fL (79-100) Mean Corpuscular Hemoglobin 29 pg (25-35) Mean Corpuscular Hemoglobin Concent 33 g/dL (31-37) Red Cell Distribution Width 12.5 % (11.5-14.5) Platelet Count 312 x10^3/uL (140-400) Neutrophils (%) (Auto) 75 % (31-73) Lymphocytes (%) (Auto) 14 % (24-48) Monocytes (%) (Auto) 8 % (0-9) Eosinophils (%) (Auto) 1 % (0-3) Basophils (%) (Auto) 1 % (0-3) Neutrophils # (Auto) 5.8 x10^3/uL (1.8-7.7) Lymphocytes # (Auto) 1.1 x10^3/uL (1.0-4.8) Monocytes # (Auto) 0.6 x10^3/uL (0.0-1.1) Eosinophils # (Auto) 0.1 x10^3/uL (0.0-0.7) Basophils # (Auto) 0.1 x10^3/uL (0.0-0.2) Sodium Level 138 mmol/L (136-145) Potassium Level 3.7 mmol/L (3.5-5.1) Chloride Level 100 mmol/L (98-107) Carbon Dioxide Level 26 mmol/L (21-32) Anion Gap 12 (6-14) Blood Urea Nitrogen 23 mg/dL (8-26) Creatinine 0.8 mg/dL (0.7-1.3) Estimated GFR (Cockcroft-Gault) 102.7 BUN/Creatinine Ratio 29 (6-20) Glucose Level 100 mg/dL (70-99) Calcium Level 9.3 mg/dL (8.5-10.1) Magnesium Level 2.2 mg/dL (1.8-2.4) Total Bilirubin 1.1 mg/dL (0.2-1.0) Aspartate Amino Transf (AST/SGOT) 19 U/L (15-37) Alanine Aminotransferase (ALT/SGPT) 21 U/L (16-63) Alkaline Phosphatase 71 U/L (46-116) Total Protein 7.9 g/dL (6.4-8.2) Albumin 4.1 g/dL (3.4-5.0) Albumin/Globulin Ratio 1.1 (1.0-1.7) Lipase 64 U/L (73-393) Vital Signs: Vital Signs Date Time Temp Pulse Resp B/P (MAP) Pulse Ox O2 Delivery O2 Flow Rate FiO2 08/30/21 13:18 69 16 143/67 (92) 100 Room Air 08/30/21 10:38 98.2 86 16 120/77 (91) 99 Room Air 98.2 Radiology/Procedures: Radiology/Procedures: PROCEDURE: ESOPHAGRAM/BARIUM SWALLOW EXAMINATION: DG VIDEO SWALLOW STUDY 08/30/2021 12:16 PM HISTORY: Epigastric pain, unable to keep any food down, weight loss COMPARISON: None. TECHNIQUE: The patient drank effervescent crystals followed by thick and thin barium and was observed swallowing under intermittent fluoroscopy. FINDINGS: Exam is limited due to patient pain and vomiting. There was a long segment persistent narrowing at the GE junction throughout the entire exam, with an irregular appearance on the later images. A small amount of contrast did pass into the stomach during the initial portion of the exam. There is pooling of contrast in the esophagus throughout the exam. Total fluoroscopic time:3 minutes 7 seconds. Dose:37.7 mGy. IMPRESSION: Persistent long segment narrowing at the GE junction suspicious for stricture or mass. Recommend correlation with endoscopy and/or CT of the chest. Results discussed by Dr. Bradshaw with the ER physician at the time of exam. Electronically signed by: Rylie Bradshaw MD (08/30/2021 1:00 PM) Course & Med Decision Making: Course & Med Decision Making Patient with esophageal stricture evident on esophogram, differential including mass vs.achalasia from Chagas disease amongst other entities. Patient cannot tolerate PO at this time, concern for his well being at home. Will admit for further workup. Discussed care with GI who will see patient today. Will admit to Dr. Rm for further care. Patient agreeable to the plan. Departure Departure Impression: Primary Impression: Esophageal stricture Disposition: ADMITTED INPATIENT Admitting Physician: AMARA (Jag) Condition: STABLE Referrals: UNKNOWN PCP NAME (PCP) NIKO LAM DO Aug 30, 2021 10:52
[2021-08-30] MEDS ORDERED: IV NORMAL SALINE 1000ML BAG 1,000 ML IV ONE (11:00)
[2021-08-30] MEDS ORDERED: FAMOTIDINE 20 MG/2 ML VIAL IVP ONE (11:00)
[2021-08-30 11:05] LABS: BASO # 0.1 x10^3/uL (0.0-0.2); BASO % 1 % (0-3); EOS # 0.1 x10^3/uL (0.0-0.7); EOS % 1 % (0-3); HEMATOCRIT 45.7 % (39.0-53.0); HEMOGLOBIN 15.3 g/dL (13.0-17.5); LYMPH # 1.1 x10^3/uL (1.0-4.8); LYMPH % 14 % (24-48); MEAN CORPUSCULAR HEMOGLOBIN 29 pg (25-35); MEAN CORPUSCULAR HGB CONC 33 g/dL (31-37); MEAN CORPUSCULAR VOLUME 87 fL (79-100); MONO # 0.6 x10^3/uL (0.0-1.1); MONO % 8 % (0-9); NEUT # 5.8 x10^3/uL (1.8-7.7); NEUT % 75 % (31-73); PLATELET COUNT 312 x10^3/uL (140-400); RED BLOOD COUNT 5.25 x10^6/uL (4.30-5.70); RED CELL DISTRIBUTION WIDTH 12.5 % (11.5-14.5); WHITE BLOOD COUNT 7.7 x10^3/uL (4.0-11.0)
[2021-08-30] MEDS ORDERED: SIMETHICONE/SOD BICARB/CITRIC ACID PACKET. PO ONE (11:15)
[2021-08-30] MEDS ORDERED: BARIUM SULFATE 60% 355 ML SUSP PO ONE (11:15)
[2021-08-30] MEDS ORDERED: BARIUM SULFATE 340 GM SUSPENSION. PO ONE (11:15)
[2021-08-30 11:17] LABS: CALCIUM 9.3 mg/dL (8.5-10.1); CREATININE 0.8 mg/dL (0.7-1.3); GFR 102.7; POTASSIUM 3.7 mmol/L (3.5-5.1)
[2021-08-30 11:23] LABS: ALBUMIN 4.1 g/dL (3.4-5.0); ALBUMIN/GLOBULIN RATIO 1.1 (1.0-1.7); MAGNESIUM 2.2 mg/dL (1.8-2.4); TOTAL BILIRUBIN 1.1 mg/dL (0.2-1.0); TOTAL PROTEIN 7.9 g/dL (6.4-8.2)
--- NOTE | 2021-08-30 13:02 | RAD ---
EXAMINATION: DG VIDEO SWALLOW STUDY 08/30/2021 12:16 PM HISTORY: Epigastric pain, unable to keep any food down, weight loss COMPARISON: None. TECHNIQUE: The patient drank effervescent crystals followed by thick and thin barium and was observed swallowing under intermittent fluoroscopy. FINDINGS: Exam is limited due to patient pain and vomiting. There was a long segment persistent narrowing at th e GE junction throughout the entire exam, with an irregular appearance on the later images. A small a mount of contrast did pass into the stomach during the initial portion of the exam. There is pooling of contrast in the esophagus throughout the exam. Total fluoroscopic time:3 minutes 7 seconds. Dose:37.7 mGy. IMPRESSION: Persistent long segment narrowing at the GE junction suspicious for stricture or mass. Re commend correlation with endoscopy and/or CT of the chest. Results discussed by Dr. Bradshaw with the ER physician at the time of exam. Electronically signed by: Rylie Bradshaw MD (08/30/2021 1:00 PM) [id number]
[2021-08-30] MEDS ORDERED: ONDANSETRON PF 4 MG/2 ML VIAL. IVP PRN ×2 (13:30→21:15)
[2021-08-30] MEDS ORDERED: MORPHINE SULFATE 4 MG/ML INJ. IVP PRN (13:30)
[2021-08-30] MEDS: IV NORMAL SALINE 1000ML BAG 1,000 ML IV SCH (14:05)
--- NOTE | 2021-08-30 14:15 | PDOC2 ---
GI CONSULT Date of Service: DATE: 08/30/21 TIME: 14:02 Reason For Consult: Dysphagia HPI: HPI: 51 y/o male says OK until a little over a week ago when developed chest /epigastric pain and dysphagia. Frequent regurgitation of offending bolus. No liquid dysphagia nor odynophagia. Indicates cramping substernal discomfort with the dysphagia. Seen here late July and given famotidine. Seen in our office 08/27 and given PPI daily though continued to take the famotidine. Denies vomiting unless unable to eructate the offending bolus out. No chronic history of dyspepsia save maybe some early satiety prior to onset of severe symptoms. No PUD, liver or pancreatic history. S/p cholecystectomy for calculous cholecystitis. No tobacco or alcohol use. Denies diarrhea, constipation, overt GI bleeding. Was scheduled for mary-endoscopy this coming Thursday with me. GIFH negative. Appetite OK but has lost some weight with eating difficulties. PMH: PMH: Unremarkable save the cholecystectomy. FH: Family History: No pertinent hx Social History: Smoke: No ALCOHOL: none Drugs: None ROS: GEN: Denies fevers, chills, sweats HEENT: Denies blurred vision, sore throat CV: Denies chest pain RESP: Denies shortness of air, cough GI: Per HPI : Denies hematuria, dysuria ENDO: Denies weight changes NEURO: Denies confusion, dizziness MSK: Denies weakness, joint pain/swelling SKIN: Denies jaundice, pruritus Vitals: Vitals: Vital Signs Date Time Temp Pulse Resp B/P (MAP) Pulse Ox O2 Delivery O2 Flow Rate FiO2 08/30/21 13:18 69 16 143/67 (92) 100 Room Air 08/30/21 10:38 98.2 98.2 Labs: Labs: Laboratory Tests Test 08/30/21 10:59 08/30/21 13:22 White Blood Count 7.7 x10^3/uL (4.0-11.0) Red Blood Count 5.25 x10^6/uL (4.30-5.70) Hemoglobin 15.3 g/dL (13.0-17.5) Hematocrit 45.7 % (39.0-53.0) Mean Corpuscular Volume 87 fL (79-100) Mean Corpuscular Hemoglobin 29 pg (25-35) Mean Corpuscular Hemoglobin Concent 33 g/dL (31-37) Red Cell Distribution Width 12.5 % (11.5-14.5) Platelet Count 312 x10^3/uL (140-400) Neutrophils (%) (Auto) 75 % (31-73) Lymphocytes (%) (Auto) 14 % (24-48) Monocytes (%) (Auto) 8 % (0-9) Eosinophils (%) (Auto) 1 % (0-3) Basophils (%) (Auto) 1 % (0-3) Neutrophils # (Auto) 5.8 x10^3/uL (1.8-7.7) Lymphocytes # (Auto) 1.1 x10^3/uL (1.0-4.8) Monocytes # (Auto) 0.6 x10^3/uL (0.0-1.1) Eosinophils # (Auto) 0.1 x10^3/uL (0.0-0.7) Basophils # (Auto) 0.1 x10^3/uL (0.0-0.2) Sodium Level 138 mmol/L (136-145) Potassium Level 3.7 mmol/L (3.5-5.1) Chloride Level 100 mmol/L (98-107) Carbon Dioxide Level 26 mmol/L (21-32) Anion Gap 12 (6-14) Blood Urea Nitrogen 23 mg/dL (8-26) Creatinine 0.8 mg/dL (0.7-1.3) Estimated GFR (Cockcroft-Gault) 102.7 BUN/Creatinine Ratio 29 (6-20) Glucose Level 100 mg/dL (70-99) Calcium Level 9.3 mg/dL (8.5-10.1) Magnesium Level 2.2 mg/dL (1.8-2.4) Total Bilirubin 1.1 mg/dL (0.2-1.0) Aspartate Amino Transf (AST/SGOT) 19 U/L (15-37) Alanine Aminotransferase (ALT/SGPT) 21 U/L (16-63) Alkaline Phosphatase 71 U/L (46-116) Total Protein 7.9 g/dL (6.4-8.2) Albumin 4.1 g/dL (3.4-5.0) Albumin/Globulin Ratio 1.1 (1.0-1.7) Lipase 64 U/L (73-393) SARS-CoV-2 Antigen (Rapid) Negative (NEGATIVE) Allergies: Coded Allergies: No Known Drug Allergies (Unverified , 05/07/19) Medications: Current Medications Medications (Trade) Dose Ordered Sig/Meghann Route PRN Reason Start Time Stop Time Status Last Admin Dose Admin Famotidine (Pepcid Vial) 20 mg 1X ONCE IVP 08/30/21 11:00 08/30/21 11:01 DC 08/30/21 11:25 Sodium Chloride 1,000 ml @ 1,000 mls/hr 1X ONCE IV 08/30/21 11:00 08/30/21 11:59 DC 08/30/21 11:20 Barium Sulfate (Liquid E-Z Paque) 355 ml 1X ONCE PO 08/30/21 11:15 08/30/21 11:16 DC 08/30/21 12:40 Barium Sulfate (E-Z-Hd) 340 gm 1X ONCE PO 08/30/21 11:15 08/30/21 11:16 DC 08/30/21 12:40 Simethicone/ Sodium Bicarb/ Citric Ac (E-Z-Gas) 1 packet 1X ONCE PO 08/30/21 11:15 08/30/21 11:16 DC 08/30/21 12:40 Imaging: Imaging: On barium swallow: IMPRESSION: Persistent long segment narrowing at the GE junction suspicious for stricture or mass. Recommend correlation with endoscopy and/or CT of the chest. PE: GEN: NAD HEENT: Atraumatic, PERRLA LUNGS: CTAB HEART: RRR, no murmurs ABD: NABS, S/ND/NT, no masses EXTREMITY: No edema SKIN: No rashes, no jaundice NEURO/PSYCH: A & O 3 A/P: A/P: IMP: Dysphagia with abnormal esophagram. Malignancy in the differential obviously. Will review study. CRC screening, none, but planned for Thursday. May not occur due to above. REC: IV PPI. Clears OK. Will discuss esophagram with patient. Needs EGD; can do Thursday. If able to tolerate liquids possibly could go home sometime this ; we'll see. CT Chest/abdomen/pelvis. --other pending. ROSELYN GARCIA MD Aug 30, 2021 14:15
[2021-08-30] MEDS: PANTOPRAZOLE IV PUSH 40 MG VIAL. IVP SCH (16:30)
[2021-08-30 17:34] VITALS: BP 97/71
[2021-08-30 19:00] VITALS: BP 110/70
--- NOTE | 2021-08-30 21:14 | PDOC1 ---
History and Physical Date of Service: DOS: DATE: 08/30/21 TIME: 21:14 Chief Complaint: Problems: (1) Esophageal stricture Chief Complain: food caught in throat History of Present Illness: HPI: Patient is a 51-year-old male who presented to the ED complaing that he cannot eat or drink without food getting caught in his esophagus. He notes that this started gradually about 2 weeks ago and has progressed to the point where every time he eats or drinks he regurgitates and vomits it back up. Reports that he has lost 20 pounds of weight over the last 2 weeks because he is not eating or drinking properly. He called GI to set up an appointment to get an EGD performed, he said was scheduled for Thursday. The patient has been taking Protonix and Pepcid at home without relief of pain. The patient denies fever, chills, chest pain, shortness of breath, abdominal pain, urinary symptoms, cough, recent trauma, or any other complaints. He has only travelled to the [facility] in the past 1 year in May 2021 Past Medical/Surgical History: PMH/PSH: Patient denies PMH Allergies: Allergies: Coded Allergies: No Known Drug Allergies (Unverified , 05/07/19) Family History: Family History: Reviewed with patient, no known Social History: Social History: Denies alcohol tobacco drug use Current Medications: Current Medications Current Medications Famotidine (Pepcid Vial) 20 mg 1X ONCE IVP Last administered on 08/30/21at 11:25; Start 08/30/21 at 11:00; Stop 08/30/21 at 11:01; Status DC Sodium Chloride 1,000 ml @ 1,000 mls/hr 1X ONCE IV Last administered on 08/30/21at 11:20; Start 08/30/21 at 11:00; Stop 08/30/21 at 11:59; Status DC Barium Sulfate (Liquid E-Z Paque) 355 ml 1X ONCE PO Last administered on 08/30/21at 12:40; Start 08/30/21 at 11:15; Stop 08/30/21 at 11:16; Status DC Barium Sulfate (E-Z-Hd) 340 gm 1X ONCE PO Last administered on 08/30/21at 12:40; Start 08/30/21 at 11:15; Stop 08/30/21 at 11:16; Status DC Simethicone/ Sodium Bicarb/ Citric Ac (E-Z-Gas) 1 packet 1X ONCE PO Last administered on 08/30/21at 12:40; Start 08/30/21 at 11:15; Stop 08/30/21 at 11 :16; Status DC Ondansetron HCl (Zofran) 4 mg PRN Q8HRS PRN IVP NAUSEA/VOMITING; Start 08/30/21 at 13:30; Stop 08/31/21 at 13:29 Morphine Sulfate (Morphine Sulfate) 4 mg PRN Q2HR PRN IVP PAIN; Start 08/30/21 at 13:30; Stop 08/31/21 at 13:29 Sodium Chloride 1,000 ml @ 120 mls/hr Q8H20M IV Last administered on 08/30/21at 14:05; Start 08/30/21 at 13:30; Stop 08/31/21 at 13:29 Pantoprazole Sodium (PROTONIX VIAL for IV PUSH) 40 mg BIDAC IVP ; Start 08/30/21 at 16:30 Active Scripts Active Pepcid (Famotidine) 20 Mg Tablet 20 Mg PO BID 30 Days ROS: Review of Systems Review of System Unles snoted in HPI a 14pt review of systems was negative Physical Exam: Vital Signs: Vital Signs Date Time Temp Pulse Resp B/P (MAP) Pulse Ox O2 Delivery O2 Flow Rate FiO2 08/30/21 17:34 98.0 58 18 97/71 (80) 100 Room Air 98.0 Physcial Exam: GEN: Moderate distress HEENT: Normal cephalic, atraumatic, external auditory canals are patent EYES: Extraocular muscles are intact, pupil are equally round and reactive to light and accommodation MUSCULOSKELETAL: Well developed , well nourished, good range of motion ENDOCRINE: No thyromegaly was palpated LYMPHATICS: No cervical chain or axillary nodes were noted HEMATOPOIETIC: No bruising NECK: Supple, no JVD, no thyromegaly was noted LUNGS: Clear to auscultation in all lung mejia without rhonchi or wheezing HEART: RRR, S1, S2 present. Peripheral pulses intact, no obvious murmurs noted ABDOMEN: Soft, nontender. Positive bowel sounds, no organomegaly, normal b owel sounds EXTREMITIES: Without clubbing, cyanosis, or edema. Pedal pulses intact. Negative Homans sign NEUROLOGIC: Normal speech and tone. A&O x 3, moves all extremities, no obvious focal deficits PSYCHIATRIC: Normal affect, normal mood. Stable SKIN: No ulcerations or rashes, good skin turgor, no jaundice VASCULAR: Good capillary refill, neurovascular bundle appears to be intact Labs: Labs: Laboratory Tests Test 08/30/21 10:59 08/30/21 13:22 White Blood Count 7.7 x10^3/uL (4.0-11.0) Red Blood Count 5.25 x10^6/uL (4.30-5.70) Hemoglobin 15.3 g/dL (13.0-17.5) Hematocrit 45.7 % (39.0-53.0) Mean Corpuscular Volume 87 fL (79-100) Mean Corpuscular Hemoglobin 29 pg (25-35) Mean Corpuscular Hemoglobin Concent 33 g/dL (31-37) Red Cell Distribution Width 12.5 % (11.5-14.5) Platelet Count 312 x10^3/uL (140-400) Neutrophils (%) (Auto) 75 % (31-73) Lymphocytes (%) (Auto) 14 % (24-48) Monocytes (%) (Auto) 8 % (0-9) Eosinophils (%) (Auto) 1 % (0-3) Basophils (%) (Auto) 1 % (0-3) Neutrophils # (Auto) 5.8 x10^3/uL (1.8-7.7) Lymphocytes # (Auto) 1.1 x10^3/uL (1.0-4.8) Monocytes # (Auto) 0.6 x10^3/uL (0.0-1.1) Eosinophils # (Auto) 0.1 x10^3/uL (0.0-0.7) Basophils # (Auto) 0.1 x10^3/uL (0.0-0.2) Sodium Level 138 mmol/L (136-145) Potassium Level 3.7 mmol/L (3.5-5.1) Chloride Level 100 mmol/L (98-107) Carbon Dioxide Level 26 mmol/L (21-32) Anion Gap 12 (6-14) Blood Urea Nitrogen 23 mg/dL (8-26) Creatinine 0.8 mg/dL (0.7-1.3) Estimated GFR (Cockcroft-Gault) 102.7 BUN/Creatinine Ratio 29 (6-20) Glucose Level 100 mg/dL (70-99) Calcium Level 9.3 mg/dL (8.5-10.1) Magnesium Level 2.2 mg/dL (1.8-2.4) Total Bilirubin 1.1 mg/dL (0.2-1.0) Aspartate Amino Transf (AST/SGOT) 19 U/L (15-37) Alanine Aminotransferase (ALT/SGPT) 21 U/L (16-63) Alkaline Phosphatase 71 U/L (46-116) Total Protein 7.9 g/dL (6.4-8.2) Albumin 4.1 g/dL (3.4-5.0) Albumin/Globulin Ratio 1.1 (1.0-1.7) Lipase 64 U/L (73-393) SARS-CoV-2 RNA (MIKE) Negative (Negative) SARS-CoV-2 Antigen (Rapid) Negative (NEGATIVE) Laboratory Tests Test 08/30/21 10:59 08/30/21 13:22 White Blood Count 7.7 x10^3/uL (4.0-11.0) Red Blood Count 5.25 x10^6/uL (4.30-5.70) Hemoglobin 15.3 g/dL (13.0-17.5) Hematocrit 45.7 % (39.0-53.0) Mean Corpuscular Volume 87 fL (79-100) Mean Corpuscular Hemoglobin 29 pg (25-35) Mean Corpuscular Hemoglobin Concent 33 g/dL (31-37) Red Cell Distribution Width 12.5 % (11.5-14.5) Platelet Count 312 x10^3/uL (140-400) Neutrophils (%) (Auto) 75 % (31-73) Lymphocytes (%) (Auto) 14 % (24-48) Monocytes (%) (Auto) 8 % (0-9) Eosinophils (%) (Auto) 1 % (0-3) Basophils (%) (Auto) 1 % (0-3) Neutrophils # (Auto) 5.8 x10^3/uL (1.8-7.7) Lymphocytes # (Auto) 1.1 x10^3/uL (1.0-4.8) Monocytes # (Auto) 0.6 x10^3/uL (0.0-1.1) Eosinophils # (Auto) 0.1 x10^3/uL (0.0-0.7) Basophils # (Auto) 0.1 x10^3/uL (0.0-0.2) Sodium Level 138 mmol/L (136-145) Potassium Level 3.7 mmol/L (3.5-5.1) Chloride Level 100 mmol/L (98-107) Carbon Dioxide Level 26 mmol/L (21-32) Anion Gap 12 (6-14) Blood Urea Nitrogen 23 mg/dL (8-26) Creatinine 0.8 mg/dL (0.7-1.3) Estimated GFR (Cockcroft-Gault) 102.7 BUN/Creatinine Ratio 29 (6-20) Glucose Level 100 mg/dL (70-99) Calcium Level 9.3 mg/dL (8.5-10.1) Magnesium Level 2.2 mg/dL (1.8-2.4) Total Bilirubin 1.1 mg/dL (0.2-1.0) Aspartate Amino Transf (AST/SGOT) 19 U/L (15-37) Alanine Aminotransferase (ALT/SGPT) 21 U/L (16-63) Alkaline Phosphatase 71 U/L (46-116) Total Protein 7.9 g/dL (6.4-8.2) Albumin 4.1 g/dL (3.4-5.0) Albumin/Globulin Ratio 1.1 (1.0-1.7) Lipase 64 U/L (73-393) SARS-CoV-2 RNA (MIKE) Negative (Negative) SARS-CoV-2 Antigen (Rapid) Negative (NEGATIVE) Assessment/Plan Assessment/Plan Esophageal stricture achalasia -2wk hx food regurgitation; previously tried on Pepid, protonix (never took); 20lbs weight loss -Admit -clear liquid diet -IV PPI -pain control -GI consulted, possible EGD Thursday Patient ambulating with ease will hold off dvt prophylaxis Justifications for Admission Other Justification LIZET WOO MD Aug 30, 2021 21:14
[2021-08-30] MEDS ORDERED: ZOLPIDEM 5 MG TABLET. PO PRN (21:15)
[2021-08-30] MEDS ORDERED: ELECTROLYTE (NON-ICU) PROTOCOL. MC PRN (21:15)
[2021-08-30] MEDS ORDERED: MORPHINE SULFATE 2 MG/ML INJ. IV PRN (21:15)
[2021-08-30] MEDS ORDERED: ACETAMINOPHEN 325 MG TABLET. PO PRN (21:15)
[2021-08-30] MEDS ORDERED: oxyCODONE IR 5 MG TABLET PO PRN (21:15)
[2021-08-30] MEDS ORDERED: CALCIUM CARBONATE 500 MG TAB.CHEW PO PRN (21:15)
[2021-08-30] MEDS ORDERED: PANT20TA2 PO (21:30)
[2021-08-30 23:00] VITALS: BP 113/40
[2021-08-31] MEDS: IV NORMAL SALINE 1000ML BAG 1,000 ML IV SCH ×2 (00:02→08:16)
[2021-08-31 03:00] VITALS: BP 98/46
[2021-08-31 07:00] VITALS: BP 97/49
[2021-08-31] MEDS: PANTOPRAZOLE IV PUSH 40 MG VIAL. IVP SCH ×2 (08:11→16:59)
[2021-08-31] MEDS: SENNOSIDES/DOCUSATE 8.6/50MG TABLET. PO SCH ×3 (08:24→21:23)
[2021-08-31 08:34] LABS: CALCIUM 8.4 mg/dL (8.5-10.1); CREATININE 0.7 mg/dL (0.7-1.3); GFR 119.9; POTASSIUM 3.9 mmol/L (3.5-5.1)
[2021-08-31 08:42] LABS: BASO % 0 % (0-3); EOS # 0.1 x10^3/uL (0.0-0.7); EOS % 2 % (0-3); HEMATOCRIT 42.1 % (39.0-53.0); HEMOGLOBIN 14.1 g/dL (13.0-17.5); LYMPH # 0.9 x10^3/uL (1.0-4.8); LYMPH % 14 % (24-48); MEAN CORPUSCULAR HEMOGLOBIN 30 pg (25-35); MEAN CORPUSCULAR HGB CONC 34 g/dL (31-37); MEAN CORPUSCULAR VOLUME 88 fL (79-100); MONO # 0.3 x10^3/uL (0.0-1.1); MONO % 5 % (0-9); NEUT % 79 % (31-73); PLATELET COUNT 264 x10^3/uL (140-400); RED BLOOD COUNT 4.78 x10^6/uL (4.30-5.70); RED CELL DISTRIBUTION WIDTH 12.3 % (11.5-14.5); WHITE BLOOD COUNT 6.4 x10^3/uL (4.0-11.0)
--- NOTE | 2021-08-31 10:43 | PDOC ---
[employer] PROGRESS NOTE Date of Service DOS: DATE: 08/31/21 TIME: 10:39 Chief Complaint Chief Complaint Esophageal stricture versus malignancy? 20 pound weight loss History of Present Illness History of Present Illness 08/31/2021 Patient seen and examined He seems to be agitated he is having problems swallowing Trying to drink a clear liquid diet Discussed with RN Chart reviewed Images reviewed Vitals/I&O Vitals/I&O: Vital Signs Date Time Temp Pulse Resp B/P (MAP) Pulse Ox O2 Delivery O2 Flow Rate FiO2 08/31/21 07:00 98.3 64 18 97/49 (65) 100 Room Air 98.3 I & O 08/30/21 08/30/21 08/31/21 15:00 23:00 07:00 Intake Total 900 ml Balance 900 ml Physical Exam General: mild distress Heart: Regular rate Lungs: Clear Abdomen: Normal bowel sounds Extremities: No clubbing, No cyanosis Labs Labs: Laboratory Tests Test 08/30/21 10:59 08/30/21 13:22 08/31/21 07:15 White Blood Count 7.7 x10^3/uL (4.0-11.0) 6.4 x10^3/uL (4.0-11.0) Red Blood Count 5.25 x10^6/uL (4.30-5.70) 4.78 x10^6/uL (4.30-5.70) Hemoglobin 15.3 g/dL (13.0-17.5) 14.1 g/dL (13.0-17.5) Hematocrit 45.7 % (39.0-53.0) 42.1 % (39.0-53.0) Mean Corpuscular Volume 87 fL (79-100) 88 fL (79-100) Mean Corpuscular Hemoglobin 29 pg (25-35) 30 pg (25-35) Mean Corpuscular Hemoglobin Concent 33 g/dL (31-37) 34 g/dL (31-37) Red Cell Distribution Width 12.5 % (11.5-14.5) 12.3 % (11.5-14.5) Platelet Count 312 x10^3/uL (140-400) 264 x10^3/uL (140-400) Neutrophils (%) (Auto) 75 % (31-73) 79 % (31-73) Lymphocytes (%) (Auto) 14 % (24-48) 14 % (24-48) Monocytes (%) (Auto) 8 % (0-9) 5 % (0-9) Eosinophils (%) (Auto) 1 % (0-3) 2 % (0-3) Basophils (%) (Auto) 1 % (0-3) 0 % (0-3) Neutrophils # (Auto) 5.8 x10^3/uL (1.8-7.7) 5.0 x10^3/uL (1.8-7.7) Lymphocytes # (Auto) 1.1 x10^3/uL (1.0-4.8) 0.9 x10^3/uL (1.0-4.8) Monocytes # (Auto) 0.6 x10^3/uL (0.0-1.1) 0.3 x10^3/uL (0.0-1.1) Eosinophils # (Auto) 0.1 x10^3/uL (0.0-0.7) 0.1 x10^3/uL (0.0-0.7) Basophils # (Auto) 0.1 x10^3/uL (0.0-0.2) 0.0 x10^3/uL (0.0-0.2) Sodium Level 138 mmol/L (136-145) 141 mmol/L (136-145) Potassium Level 3.7 mmol/L (3.5-5.1) 3.9 mmol/L (3.5-5.1) Chloride Level 100 mmol/L (98-107) 105 mmol/L (98-107) Carbon Dioxide Level 26 mmol/L (21-32) 23 mmol/L (21-32) Anion Gap 12 (6-14) 13 (6-14) Blood Urea Nitrogen 23 mg/dL (8-26) 21 mg/dL (8-26) Creatinine 0.8 mg/dL (0.7-1.3) 0.7 mg/dL (0.7-1.3) Estimated GFR (Cockcroft-Gault) 102.7 119.9 BUN/Creatinine Ratio 29 (6-20) Glucose Level 100 mg/dL (70-99) 57 mg/dL (70-99) Calcium Level 9.3 mg/dL (8.5-10.1) 8.4 mg/dL (8.5-10.1) Magnesium Level 2.2 mg/dL (1.8-2.4) Total Bilirubin 1.1 mg/dL (0.2-1.0) Aspartate Amino Transf (AST/SGOT) 19 U/L (15-37) Alanine Aminotransferase (ALT/SGPT) 21 U/L (16-63) Alkaline Phosphatase 71 U/L (46-116) Total Protein 7.9 g/dL (6.4-8.2) Albumin 4.1 g/dL (3.4-5.0) Albumin/Globulin Ratio 1.1 (1.0-1.7) Lipase 64 U/L (73-393) SARS-CoV-2 RNA (MIKE) Negative (Negative) SARS-CoV-2 Antigen (Rapid) Negative (NEGATIVE) Assessment and Plan Assessmemt and Plan Problems Esophageal stricture versus malignancy 20 pound weight loss Plan Awaiting EGD Thursday For now continue clear liquids if possible IV fluids Trend labs PPIs Appreciate GI input Prognosis guarded? Comment Review of Relevant I have reviewed the following items yasmin (where applicable) has been applied. Medications: Current Medications Medications (Trade) Dose Ordered Sig/Meghann Route PRN Reason Start Time Stop Time Status Last Admin Dose Admin Famotidine (Pepcid Vial) 20 mg 1X ONCE IVP 08/30/21 11:00 08/30/21 11:01 DC 08/30/21 11:25 Sodium Chloride 1,000 ml @ 1,000 mls/hr 1X ONCE IV 08/30/21 11:00 08/30/21 11:59 DC 08/30/21 11:20 Barium Sulfate (Liquid E-Z Paque) 355 ml 1X ONCE PO 08/30/21 11:15 08/30/21 11:16 DC 08/30/21 12:40 Barium Sulfate (E-Z-Hd) 340 gm 1X ONCE PO 08/30/21 11:15 08/30/21 11:16 DC 08/30/21 12:40 Simethicone/ Sodium Bicarb/ Citric Ac (E-Z-Gas) 1 packet 1X ONCE PO 08/30/21 11:15 08/30/21 11:16 DC 08/30/21 12:40 Sodium Chloride 1,000 ml @ 120 mls/hr Q8H20M IV 08/30/21 13:30 08/31/21 13:29 08/31/21 08:16 Pantoprazole Sodium (PROTONIX VIAL for IV PUSH) 40 mg BIDAC IVP 08/30/21 16:30 08/31/21 08:11 Justifications for Admission Other Justification JORGE LUIS BAUMANN III DO Aug 31, 2021 10:43
[2021-08-31 11:00] VITALS: BP 116/77
--- NOTE | 2021-08-31 11:55 | PDOC ---
G I PROGRESS NOTE Subjective Having a hard time even with the clears. Objective Staff report may be able to have CT today. Physical Exam Lungs clear. RRR Abdomen soft, not tender. Review of Relevant I have reviewed the following items yasmin (where applicable) has been applied. Labs Laboratory Tests Test 08/30/21 10:59 08/30/21 13:22 08/31/21 07:15 White Blood Count 7.7 x10^3/uL (4.0-11.0) 6.4 x10^3/uL (4.0-11.0) Red Blood Count 5.25 x10^6/uL (4.30-5.70) 4.78 x10^6/uL (4.30-5.70) Hemoglobin 15.3 g/dL (13.0-17.5) 14.1 g/dL (13.0-17.5) Hematocrit 45.7 % (39.0-53.0) 42.1 % (39.0-53.0) Mean Corpuscular Volume 87 fL (79-100) 88 fL (79-100) Mean Corpuscular Hemoglobin 29 pg (25-35) 30 pg (25-35) Mean Corpuscular Hemoglobin Concent 33 g/dL (31-37) 34 g/dL (31-37) Red Cell Distribution Width 12.5 % (11.5-14.5) 12.3 % (11.5-14.5) Platelet Count 312 x10^3/uL (140-400) 264 x10^3/uL (140-400) Neutrophils (%) (Auto) 75 % (31-73) 79 % (31-73) Lymphocytes (%) (Auto) 14 % (24-48) 14 % (24-48) Monocytes (%) (Auto) 8 % (0-9) 5 % (0-9) Eosinophils (%) (Auto) 1 % (0-3) 2 % (0-3) Basophils (%) (Auto) 1 % (0-3) 0 % (0-3) Neutrophils # (Auto) 5.8 x10^3/uL (1.8-7.7) 5.0 x10^3/uL (1.8-7.7) Lymphocytes # (Auto) 1.1 x10^3/uL (1.0-4.8) 0.9 x10^3/uL (1.0-4.8) Monocytes # (Auto) 0.6 x10^3/uL (0.0-1.1) 0.3 x10^3/uL (0.0-1.1) Eosinophils # (Auto) 0.1 x10^3/uL (0.0-0.7) 0.1 x10^3/uL (0.0-0.7) Basophils # (Auto) 0.1 x10^3/uL (0.0-0.2) 0.0 x10^3/uL (0.0-0.2) Sodium Level 138 mmol/L (136-145) 141 mmol/L (136-145) Potassium Level 3.7 mmol/L (3.5-5.1) 3.9 mmol/L (3.5-5.1) Chloride Level 100 mmol/L (98-107) 105 mmol/L (98-107) Carbon Dioxide Level 26 mmol/L (21-32) 23 mmol/L (21-32) Anion Gap 12 (6-14) 13 (6-14) Blood Urea Nitrogen 23 mg/dL (8-26) 21 mg/dL (8-26) Creatinine 0.8 mg/dL (0.7-1.3) 0.7 mg/dL (0.7-1.3) Estimated GFR (Cockcroft-Gault) 102.7 119.9 BUN/Creatinine Ratio 29 (6-20) Glucose Level 100 mg/dL (70-99) 57 mg/dL (70-99) Calcium Level 9.3 mg/dL (8.5-10.1) 8.4 mg/dL (8.5-10.1) Magnesium Level 2.2 mg/dL (1.8-2.4) Total Bilirubin 1.1 mg/dL (0.2-1.0) Aspartate Amino Transf (AST/SGOT) 19 U/L (15-37) Alanine Aminotransferase (ALT/SGPT) 21 U/L (16-63) Alkaline Phosphatase 71 U/L (46-116) Total Protein 7.9 g/dL (6.4-8.2) Albumin 4.1 g/dL (3.4-5.0) Albumin/Globulin Ratio 1.1 (1.0-1.7) Lipase 64 U/L (73-393) SARS-CoV-2 RNA (MIKE) Negative (Negative) SARS-CoV-2 Antigen (Rapid) Negative (NEGATIVE) Laboratory Tests Test 08/30/21 13:22 08/31/21 07:15 SARS-CoV-2 RNA (MIKE) Negative (Negative) SARS-CoV-2 Antigen (Rapid) Negative (NEGATIVE) White Blood Count 6.4 x10^3/uL (4.0-11.0) Red Blood Count 4.78 x10^6/uL (4.30-5.70) Hemoglobin 14.1 g/dL (13.0-17.5) Hematocrit 42.1 % (39.0-53.0) Mean Corpuscular Volume 88 fL (79-100) Mean Corpuscular Hemoglobin 30 pg (25-35) Mean Corpuscular Hemoglobin Concent 34 g/dL (31-37) Red Cell Distribution Width 12.3 % (11.5-14.5) Platelet Count 264 x10^3/uL (140-400) Neutrophils (%) (Auto) 79 % (31-73) Lymphocytes (%) (Auto) 14 % (24-48) Monocytes (%) (Auto) 5 % (0-9) Eosinophils (%) (Auto) 2 % (0-3) Basophils (%) (Auto) 0 % (0-3) Neutrophils # (Auto) 5.0 x10^3/uL (1.8-7.7) Lymphocytes # (Auto) 0.9 x10^3/uL (1.0-4.8) Monocytes # (Auto) 0.3 x10^3/uL (0.0-1.1) Eosinophils # (Auto) 0.1 x10^3/uL (0.0-0.7) Basophils # (Auto) 0.0 x10^3/uL (0.0-0.2) Sodium Level 141 mmol/L (136-145) Potassium Level 3.9 mmol/L (3.5-5.1) Chloride Level 105 mmol/L (98-107) Carbon Dioxide Level 23 mmol/L (21-32) Anion Gap 13 (6-14) Blood Urea Nitrogen 21 mg/dL (8-26) Creatinine 0.7 mg/dL (0.7-1.3) Estimated GFR (Cockcroft-Gault) 119.9 Glucose Level 57 mg/dL (70-99) Calcium Level 8.4 mg/dL (8.5-10.1) Vitals/I & O Vital Sign - Last 24 Hours 08/30/21 08/30/21 08/30/21 08/30/21 12:00 13:00 13:18 14:00 Pulse 57 63 69 63 Resp 23 17 16 22 B/P (MAP) 128/77 (94) 143/67 (92) 143/67 (92) 131/70 (90) Pulse Ox 100 100 100 100 O2 Delivery Room Air Room Air Room Air Room Air 08/30/21 08/30/21 08/30/21 08/30/21 15:00 17:34 19:00 23:00 Temp 98.0 98.4 98.3 98.0 98.4 98.3 Pulse 58 58 62 59 Resp 17 18 18 18 B/P (MAP) 135/61 (85) 97/71 (80) 110/70 (83) 113/40 (64) Pulse Ox 100 100 98 97 O2 Delivery Room Air Room Air Room Air Room Air 08/31/21 08/31/21 08/31/21 03:00 07:00 11:00 Temp 98.4 98.3 97.4 98.4 98.3 97.4 Pulse 61 64 56 Resp 18 18 20 B/P (MAP) 98/46 (63) 97/49 (65) 116/77 (90) Pulse Ox 98 100 100 O2 Delivery Room Air Room Air Room Air Intake and Output 08/30/21 08/30/21 08/31/21 15:00 23:00 07:00 Intake Total 900 ml Balance 900 ml Images Reviewed barium swallow again; still concern for possible malignancy. Problem List Problems Medical Problems: (1) Esophageal stricture Status: Acute Assessment Dysphagia with abnormal esophagram. Extremely narrow distal esophagus; appearance concerning for Ca. What's weird is rapidity of symptom onset. Plan of Care Note Continue as now; told him not to push clears. Await CT. EGD Thursday; would not be able to prep for colonoscopy. Justicifation of Admission Dx: Justifications for Admission: Justification of Admission Dx: No ROSELYN GARCIA MD Aug 31, 2021 11:55
[2021-08-31 15:00] VITALS: BP 110/75
[2021-08-31] MEDS: MORPHINE SULFATE 2 MG/ML INJ. IV PRN (17:13)
[2021-08-31] MEDS ORDERED: IOHEXOL 300 MG/ML 100ML VIAL. IV ONE (17:30)
[2021-08-31 19:00] VITALS: BP 137/75
--- NOTE | 2021-08-31 21:31 | NUR ---
RN entered room to do hourly rounds - found pt sitting in bed with bath basin at side with emesis in it. When RN asked how long pt had been throwing up, pt reported had been doing it since admission - pt did not inform this RN previous noc shift that was having emesis. RN instructed pt needed to let RN know when having emesis so can get medication to help with nausea/vomiting. Pt verbalized understanding. Will continue to monitor pt status closely
[2021-08-31] MEDS: PROCHLORPERAZINE 10 MG/2 ML VIAL. IV PRN (22:09)
[2021-08-31 23:00] VITALS: BP 107/48
[2021-09-01 03:11] VITALS: BP 124/77
[2021-09-01 07:00] VITALS: BP 98/61
--- NOTE | 2021-09-01 09:41 | RAD ---
CT CHEST+ABD+PELVIS W History: Dysphagia. Technique: CT of the chest, abdomen and pelvis were performed with intravenous contrast. Coronal and sagittal reconstructions were performed. Exposure: One or more of the following individualized dose reduction techniques were utilized for thi s examination: 1. Automated exposure control 2. Adjustment of the mA and/or kV according to patient size 3. Use of iterative reconstruction technique. Comparison: May 08, 2019 Findings: Chest: No pathologic lymphadenopathy. No consolidation or pleural effusion. No pneumothorax. Mildly dilated fluid-filled esophagus. Distal esophageal and esophageal gastric asymmetric masslike w all thickening. Abdomen and pelvis: Solid ill-defined right superior hepatic mass measures 2.8 x 2.6 cm. Right inferi or hepatic hypodense lesion measures 1.7 x 1.4 cm. Additional hypodense lesion along the falciform li gament within the right lobe measures 1.7 x 1.6 cm. Mildly prominent retroperitoneal and upper abdomi nal lymph nodes. Largest upper abdominal perigastric lymph node measures 2.0 x 1.5 cm. No ascites. The spleen is enlarged measures 13.5 cm. The adrenal glands, and pancreas unremarkable. Degraded eval uation of the upper abdomen due to barium contrast within the colon. Prior cholecystectomy. Dilated i ntrahepatic and extrahepatic biliary ducts potentially within normal range for postcholecystectomy st ate. No renal calculus. No hydronephrosis. Decompressed urinary bladder. Degraded evaluation of the colon due to barium contrast producing susceptibility artifact. Appendix n ot well seen. No evidence of bowel obstruction. Bones: Lower lumbar spondylosis. Impression: 1. Distal esophageal/esophageal gastric junction masslike thickening, concerning for primary maligna ncy. Recommend direct visualization and biopsy. 2. Mildly distended fluid-filled esophagus. 3. Solid ill-defined hepatic masses, concerning for metastasis. MRI with and without contrast can fu rther evaluate if clinically indicated. 4. Mildly enlarged upper abdominal lymph nodes concerning for metastasis. Electronically signed by: Luis Cain DO (09/01/2021 9:38 AM) [facility] [place]
[2021-09-01] MEDS: PANTOPRAZOLE IV PUSH 40 MG VIAL. IVP SCH ×2 (09:53→17:04)
[2021-09-01] MEDS: PROCHLORPERAZINE 10 MG/2 ML VIAL. IV PRN ×3 (09:53→21:36)
[2021-09-01] MEDS: SENNOSIDES/DOCUSATE 8.6/50MG TABLET. PO SCH ×2 (09:53→21:00)
--- NOTE | 2021-09-01 10:29 | PDOC ---
[employer] PROGRESS NOTE Date of Service DOS: DATE: 09/01/21 TIME: 10:28 Chief Complaint Chief Complaint Esophageal stricture versus malignancy? 20 pound weight loss History of Present Illness History of Present Illness 09/01/2021 Patient seen and examined He is trying to keep Jell-O down but having difficulty A little less anxious than yesterday but very concerned Discussed with RN Chart reviewed CAT scan showing possible malignancy at the distal esophagus He is going for EGD tomorrow We will also consult heme-onc 08/31/2021 Patient seen and examined He seems to be agitated he is having problems swallowing Trying to drink a clear liquid diet Discussed with RN Chart reviewed Images reviewed Vitals/I&O Vitals/I&O: Vital Signs Date Time Temp Pulse Resp B/P (MAP) Pulse Ox O2 Delivery O2 Flow Rate FiO2 09/01/21 07:00 98.2 67 18 98/61 (73) 97 Room Air 98.2 I & O 08/31/21 08/31/21 09/01/21 15:00 23:00 07:00 Intake Total 120 ml 200 ml Output Total 550 ml 200 ml Balance 120 ml -350 ml -200 ml Physical Exam General: mild distress Heart: Regular rate Lungs: Clear Abdomen: Normal bowel sounds Extremities: No clubbing, No cyanosis Assessment and Plan Assessmemt and Plan Problems Medical Problems: (1) Esophageal stricture Status: Acute Esophageal stricture versus malignancy 20 pound weight loss Plan Awaiting EGD Thursday For now continue clear liquids if possible IV fluids Trend labs PPIs Appreciate GI input Prognosis guarded? CT results from this morning as follows; Impression: 1. Distal esophageal/esophageal gastric junction masslike thickening, concerning for primary malignancy. Recommend direct visualization and biopsy. 2. Mildly distended fluid-filled esophagus. 3. Solid ill-defined hepatic masses, concerning for metastasis. MRI with and without contrast can further evaluate if clinically indicated. 4. Mildly enlarged upper abdominal lymph nodes concerning for metastasis. Comment Review of Relevant I have reviewed the following items yasmin (where applicable) has been applied. Medications: Current Medications Medications (Trade) Dose Ordered Sig/Meghann Route PRN Reason Start Time Stop Time Status Last Admin Dose Admin Iohexol (Omnipaque 300 Mg/ml) 75 ml 1X ONCE IV 08/31/21 17:30 08/31/21 17:34 DC 08/31/21 17:51 Prochlorperazine Edisylate (Compazine) 10 mg PRN Q6HRS PRN IV NAUSEA/VOMITING 2ND CHOICE 08/31/21 21:45 09/01/21 09:53 Justifications for Admission Other Justification JORGE LUIS BAUMANN III DO Sep 01, 2021 10:29
[2021-09-01 11:00] VITALS: BP 98/67
[2021-09-01] MEDS: AA 4.25 %/CALCIUM/LYTES/D5W 1,000 ML IV SCH (11:17)
--- NOTE | 2021-09-01 12:26 | PDOC ---
G I PROGRESS NOTE Subjective Miserable. Can't tolerate po. Physical Exam Lungs clear. RRR Abdomen soft, not tender nor distended. Review of Relevant I have reviewed the following items yasmin (where applicable) has been applied. Labs Laboratory Tests Test 08/30/21 13:22 08/31/21 07:15 SARS-CoV-2 RNA (MIKE) Negative (Negative) SARS-CoV-2 Antigen (Rapid) Negative (NEGATIVE) White Blood Count 6.4 x10^3/uL (4.0-11.0) Red Blood Count 4.78 x10^6/uL (4.30-5.70) Hemoglobin 14.1 g/dL (13.0-17.5) Hematocrit 42.1 % (39.0-53.0) Mean Corpuscular Volume 88 fL (79-100) Mean Corpuscular Hemoglobin 30 pg (25-35) Mean Corpuscular Hemoglobin Concent 34 g/dL (31-37) Red Cell Distribution Width 12.3 % (11.5-14.5) Platelet Count 264 x10^3/uL (140-400) Neutrophils (%) (Auto) 79 % (31-73) Lymphocytes (%) (Auto) 14 % (24-48) Monocytes (%) (Auto) 5 % (0-9) Eosinophils (%) (Auto) 2 % (0-3) Basophils (%) (Auto) 0 % (0-3) Neutrophils # (Auto) 5.0 x10^3/uL (1.8-7.7) Lymphocytes # (Auto) 0.9 x10^3/uL (1.0-4.8) Monocytes # (Auto) 0.3 x10^3/uL (0.0-1.1) Eosinophils # (Auto) 0.1 x10^3/uL (0.0-0.7) Basophils # (Auto) 0.0 x10^3/uL (0.0-0.2) Sodium Level 141 mmol/L (136-145) Potassium Level 3.9 mmol/L (3.5-5.1) Chloride Level 105 mmol/L (98-107) Carbon Dioxide Level 23 mmol/L (21-32) Anion Gap 13 (6-14) Blood Urea Nitrogen 21 mg/dL (8-26) Creatinine 0.7 mg/dL (0.7-1.3) Estimated GFR (Cockcroft-Gault) 119.9 Glucose Level 57 mg/dL (70-99) Calcium Level 8.4 mg/dL (8.5-10.1) Vitals/I & O Vital Sign - Last 24 Hours 08/31/21 08/31/21 08/31/21 09/01/21 15:00 19:00 23:00 03:11 Temp 98.3 98.0 98.0 97.8 98.3 98.0 98.0 97.8 Pulse 67 58 54 47 Resp 18 18 18 18 B/P (MAP) 110/75 (87) 137/75 (95) 107/48 (67) 124/77 (93) Pulse Ox 98 100 100 99 O2 Delivery Room Air Room Air Room Air Room Air 09/01/21 07:00 Temp 98.2 98.2 Pulse 67 Resp 18 B/P (MAP) 98/61 (73) Pulse Ox 97 O2 Delivery Room Air Intake and Output 08/31/21 08/31/21 09/01/21 15:00 23:00 07:00 Intake Total 120 ml 200 ml Output Total 550 ml 200 ml Balance 120 ml -350 ml -[address]: Impression: 1. Distal esophageal/esophageal gastric junction masslike thickening, concerning for primary malignancy. Recommend direct visualization and biopsy. 2. Mildly distended fluid-filled esophagus. 3. Solid ill-defined hepatic masses, concerning for metastasis. MRI with and without contrast can further evaluate if clinically indicated. 4. Mildly enlarged upper abdominal lymph nodes concerning for metastasis. Problem List Problems Medical Problems: (1) Esophageal stricture Status: Acute Assessment Suspect malignancy at GE junction; seems likely metastatic. Plan of Care Note Continue IVF's. EGD tomorrow. Justicifation of Admission Dx: Justifications for Admission: Justification of Admission Dx: No ROSELYN GARCIA MD Sep 01, 2021 12:26
[2021-09-01 15:00] VITALS: BP 110/83
[2021-09-01 19:00] VITALS: BP 125/78
[2021-09-01 23:03] VITALS: BP 126/73
[2021-09-02] VITALS (13 sets, daily range): BP systolic 103–141; BP diastolic 67–89
[2021-09-02] MEDS: AA 4.25 %/CALCIUM/LYTES/D5W 1,000 ML IV SCH ×3 (04:53→21:58)
[2021-09-02] MEDS: PANTOPRAZOLE IV PUSH 40 MG VIAL. IVP SCH ×2 (08:33→16:08)
[2021-09-02] MEDS: SENNOSIDES/DOCUSATE 8.6/50MG TABLET. PO SCH ×2 (09:00→21:58)
--- NOTE | 2021-09-02 11:10 | PDOC ---
[employer] PROGRESS NOTE Date of Service DOS: DATE: 09/02/21 TIME: 11:08 Chief Complaint Chief Complaint Esophageal stricture versus malignancy? 20 pound weight loss History of Present Illness History of Present Illness 09/02/2021 Patient seen and examined He has a friend present Agreed to discuss his medical condition and care with his friend present I explained I was concerned about his CAT scan report and would get a second opinion from oncology Discussed with RN Chart reviewed CT results as follows: Impression: 1. Distal esophageal/esophageal gastric junction masslike thickening, concerning for primary malignancy. Recommend direct visualization and biopsy. 2. Mildly distended fluid-filled esophagus. 3. Solid ill-defined hepatic masses, concerning for metastasis. MRI with and without contrast can further evaluate if clinically indicated. 4. Mildly enlarged upper abdominal lymph nodes concerning for metastasis. 09/01/2021 Patient seen and examined He is trying to keep Jell-O down but having difficulty A little less anxious than yesterday but very concerned Discussed with RN Chart reviewed CAT scan showing possible malignancy at the distal esophagus He is going for EGD tomorrow We will also consult heme-onc 08/31/2021 Patient seen and examined He seems to be agitated he is having problems swallowing Trying to drink a clear liquid diet Discussed with RN Chart reviewed Images reviewed Vitals/I&O Vitals/I&O: Vital Signs Date Time Temp Pulse Resp B/P (MAP) Pulse Ox O2 Delivery O2 Flow Rate FiO2 09/02/21 07:00 98.3 67 17 113/69 (84) 98 Room Air 98.3 I & O 0 09/01/21 09/01/21 09/02/21 15:00 23:00 07:00 Output Total 200 ml 200 ml 350 ml Balance -200 ml -200 ml -350 ml Physical Exam General: mild distress Heart: Regular rate Lungs: Clear Abdomen: Normal bowel sounds Extremities: No clubbing, No cyanosis Assessment and Plan Assessmemt and Plan Problems Medical Problems: (1) Esophageal stricture Status: Acute Esophageal stricture versus malignancy 20 pound weight loss Plan Awaiting EGD I consulted oncology for second opinion N.p.o. IV Trend labs PPIs Appreciate GI input Prognosis guarded? CT results from this morning as follows; Impression: 1. Distal esophageal/esophageal gastric junction masslike thickening, concerning for primary malignancy. Recommend direct visualization and biopsy. 2. Mildly distended fluid-filled esophagus. 3. Solid ill-defined hepatic masses, concerning for metastasis. MRI with and without contrast can further evaluate if clinically indicated. 4. Mildly enlarged upper abdominal lymph nodes concerning for metastasis. Comment Review of Relevant I have reviewed the following items yasmin (where applicable) has been applied. Medications: Current Medications Medications (Trade) Dose Ordered Sig/Meghann Route PRN Reason Start Time Stop Time Status Last Admin Dose Admin Amino Acids/ Electrolytes/ Dextrose 1,000 ml @ 80 mls/hr [id number] IV 09/01/21 11:30 09/02/21 04:53 Justifications for Admission Other Justification JORGE LUIS BAUMANN III DO Sep 02, 2021 11:10
--- NOTE | 2021-09-02 11:36 | NUR ---
SW following. Discussed with RN, pt from home, room air, NPO (on Clinimix)COVID-19 negative. No therapy need. GI following - EGD today. RN advised no SW needs at this time. SW will continue to follow.
[2021-09-02] MEDS: IV RINGERS,LACTATED 1000ML 1,000 ML IV SCH ×2 (13:30→23:30)
--- NOTE | 2021-09-02 14:13 | PDOC4 ---
PROCEDURE Procedure EGD/biopsies Indication: Dysphagia/abnormal imaging suggestive of malignancy Meds: per anesthesia Findings: E--narrowing suggestiive of extrinsic compression at 44-45cm. No Reid's or signs of reflux. Able to pass into stomach with some difficulty. G--Large tumor encircling cardia suggestive of adenoCa at GE junction. Biopsies taken. Distal stomach normal. Biopsied antrum. D--Normal to second portion. Itzel. well. IMP: Likely adenoCa at GE junction arising from gastric side. REC: Await biopsies, oncologic opinion. Stay at [facility]. ROSELYN GARCAI MD Sep 02, 2021 14:13
[2021-09-02] MEDS ORDERED: PROPOFOL 10 MG/ML (20ML) VIAL. IV ONE (14:19)
[2021-09-02] MEDS ORDERED: LIDOCAINE 2% PF 5 ML VIAL. ONE (14:19)
[2021-09-02] MEDS: PROCHLORPERAZINE 10 MG/2 ML VIAL. IV PRN (15:00)
[2021-09-02] MEDS: MORPHINE SULFATE 2 MG/ML INJ. IV PRN (16:07)
[2021-09-03 03:00] VITALS: BP 129/78
[2021-09-03 07:00] VITALS: BP 109/57
[2021-09-03] MEDS: SENNOSIDES/DOCUSATE 8.6/50MG TABLET. PO SCH (08:22)
[2021-09-03] MEDS: PANTOPRAZOLE IV PUSH 40 MG VIAL. IVP SCH (08:23)
[2021-09-03] MEDS: IV RINGERS,LACTATED 1000ML 1,000 ML IV SCH (08:24)
--- NOTE | 2021-09-03 09:47 | PDOC ---
Date of Service: DATE: 09/03/21 TIME: 09:44 Subjective: Subjective: Feels okay, clears going down "a little." Objective: Vital Signs: Vital Signs Date Time Temp Pulse Resp B/P (MAP) Pulse Ox O2 Delivery O2 Flow Rate FiO2 09/03/21 07:00 98.3 74 18 109/57 (74) 96 98.3 09/03/21 03:00 Room Air Imaging: C/A/P CT 08/31/21 Impression: 1. Distal esophageal/esophageal gastric junction masslike thickening, concerning for primary malignancy. Recommend direct visualization and biopsy. 2. Mildly distended fluid-filled esophagus. 3. Solid ill-defined hepatic masses, concerning for metastasis. MRI with and without contrast can further evaluate if clinically indicated. 4. Mildly enlarged upper abdominal lymph nodes concerning for metastasis. EGD/biopsies 09/02/21 Indication: Dysphagia/abnormal imaging suggestive of malignancy E--narrowing suggestiive of extrinsic compression at 44-45cm. No Reid's or signs of reflux. Able to pass into stomach with some difficulty. G--Large tumor encircling cardia suggestive of adenoCa at GE junction. Biopsies taken. Distal stomach normal. Biopsied antrum. D--Normal to second portion. IMP: Likely adenoCa at GE junction arising from gastric side. REC: Await biopsies, oncologic opinion. Stay at [facility]. 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 Oncology opinion pending. Justicifation of Admission Dx: Justifications for Admission: Justification of Admission Dx: CORY Arellano Sep 03, 2021 09:47
[2021-09-03 11:00] VITALS: BP 105/70
--- NOTE | 2021-09-03 12:20 | PDOC2 ---
CONSULT Date of Consult Date of Consult DATE: 09/03/21 TIME: 11:58 Reason for Consult Reason for Consult: Gastric mass Referring Physician Referring Physician: Dr. Rm Identification/Chief Complaint Chief Complaint Dysphagia Source Source: Chart review, Patient History of Present Illness Reason for Visit: Patient is a 51-year-old male with no medical history who presented to the hospital with dysphagia. He reports new onset of dysphagia for the last few days. Notes difficulty with eating a burrito recently. Has lost 20 pounds in the last 3 months. Denies pain anywhere new. Denies hematemesis or melena or hematochezia. Received CT CAP which showed GE junction mass and multiple liver hypodense lesions concerning for metastasis. EGD was performed on 09/02/[address] Ny and showed a GE junction mass. Biopsy has been obtained. Medical oncology consultation has been sought due to the patient suspected cancer diagn osis. Patient was accompanied by son and daughter in the room. We reviewed results of CT scans and EGD. Reports a family history of bone cancer in the family Past Medical History Cardiovascular: No pertinent hx Pulmonary: No pertinent hx Renal/: No pertinent hx Past Surgical History Past Surgical History: No pertinent history Social History No ALCOHOL: none Drugs: None Current Problem List Problem List Problems Medical Problems: (1) Esophageal stricture Status: Acute Current Medications Current Medications Current Medications Famotidine (Pepcid Vial) 20 mg 1X ONCE IVP Last administered on 08/30/21at 11:25; Start 08/30/21 at 11:00; Stop 08/30/21 at 11:01; Status DC Sodium Chloride 1,000 ml @ 1,000 mls/hr 1X ONCE IV Last administered on 08/30/21at 11:20; Start 08/30/21 at 11:00; Stop 08/30/21 at 11:59; Status DC Barium Sulfate (Liquid E-Z Paque) 355 ml 1X ONCE PO Last administered on 08/30/21at 12:40; Start 08/30/21 at 11:15; Stop 08/30/21 at 11:16; Status DC Barium Sulfate (E-Z-Hd) 340 gm 1X ONCE PO Last administered on 08/30/21at 12:40; Start 08/30/21 at 11:15; Stop 08/30/21 at 11:16; Status DC Simethicone/ Sodium Bicarb/ Citric Ac (E-Z-Gas) 1 packet 1X ONCE PO Last administered on 08/30/21at 12:40; Start 08/30/21 at 11:15; Stop 08/30/21 at 11:16; Status DC Ondansetron HCl (Zofran) 4 mg PRN Q8HRS PRN IVP NAUSEA/VOMITING; Start 08/30/21 at 13:30; Stop 08/30/21 at 21:22; Status DC Morphine Sulfate (Morphine Sulfate) 4 mg PRN Q2HR PRN IVP PAIN; Start 08/30/21 at 13:30; Stop 08/30/21 at 21:22; Status DC Sodium Chloride 1,000 ml @ 120 mls/hr Q8H20M IV Last administered on 08/31/21at 08:16; Start 08/30/21 at 13:30; Stop 08/31/21 at 13:29; Status DC Pantoprazole Sodium (PROTONIX VIAL for IV PUSH) 40 mg BIDAC IVP Last administered on 09/03/21at 08:23; Start 08/30/21 at 16:30 Ondansetron HCl (Zofran) 4 mg PRN Q6HRS PRN IVP NAUSEA/VOMITING 1ST CHOICE Last administered on 08/31/21at 17:12; Start 08/30/21 at 21:15 Calcium Carbonate/ Glycine (Tums) 500 mg PRN Q3HRS PRN PO UPSET STOMACH; Start 08/30/21 at 21:15 Zolpidem Tartrate (Ambien) 5 mg PRN QHS PRN PO INSOMNIA, MAY REPEAT IN 1HR; Start 08/30/21 at 21:15 Info (Non-Icu Electrolyte Protocol) 1 ea PRN DAILY PRN MC SEE COMMENTS; Start 08/30/21 at 21:15 Oxycodone HCl (Roxicodone) 5 mg PRN Q3HRS PRN PO BREAKTHROUGH PAIN Last administered on 09/01/21at 17:07; Start 08/30/21 at 21:15 Morphine Sulfate (Morphine Sulfate) 1 mg PRN Q1HR PRN IV MODERATE PAIN 4-6; Start 08/30/21 at 21:15 Morphine Sulfate (Morphine Sulfate) 2 mg PRN Q1HR PRN IV SEVERE PAIN 7-10 Last administered on 09/02/21at 16:07; Start 08/30/21 at 21:15 Acetaminophen (Tylenol) 650 mg PRN Q6HRS PRN PO Headaches, Temp > 101.5F; Start 08/30/21 at 21:15 Senna/Docusate Sodium (Senna Plus) 1 tab BID PO Last administered on 09/03/21at 08:22; Start 08/31/21 at 09:00 Iohexol (Omnipaque 300 Mg/ml) 75 ml 1X ONCE IV Last administered on 08/31/21at 17:51; Start 08/31/21 at 17:30; Stop 08/31/21 at 17:34; Status DC Prochlorperazine Edisylate (Compazine) 10 mg PRN Q6HRS PRN IV NAUSEA/VOMITING 2ND CHOICE Last administered on 09/02/21at 15:00; Start 08/31/21 at 21:45 Amino Acids/ Electrolytes/ Dextrose 1,000 ml @ 80 mls/hr [id number] IV Last administered on 09/02/21at 21:58; Start 09/01/21 at 11:30 Ringer's Solution 1,000 ml @ 100 mls/hr Q10H IV Last administered on 09/03/21at 08:24; Start 09/02/21 at 13:30 Lorazepam (Ativan Inj) 2 mg PRN Q6HRS PRN IVP ANXIETY / AGITATION (SEVERE) Last administered on 09/02/21at 17:16; Start 09/02/21 at 16:30 Lorazepam (Ativan Inj) 1 mg PRN Q6HRS PRN IVP ANXIETY / AGITATION (MILD-MOD); Start 09/02/21 at 16:30 Propofol (Diprivan) 200 mg STK-MED ONCE IV ; Start 09/02/21 at 14:19; Stop 09/02/21 at 18:55; Status DC Lidocaine HCl (Lidocaine Pf 2% Vial) 5 ml STK-MED ONCE .ROUTE ; Start 09/02/21 at 14:19; Stop 09/02/21 at 18:55; Status DC Active Scripts Active Pepcid (Famotidine) 20 Mg Tablet 20 Mg PO BID 30 Days Reported Protonix (Pantoprazole Sodium) 20 Mg Tablet. 1 Tab PO DAILY Allergies Allergies: Coded Allergies: No Known Drug Allergies (Unverified , 09/02/21) ROS Review of System Negative unless stated otherwise in HPI Physical Exam Physical Exam General: Awake, alert, no distress Head: Atraumatic, no conjunctival icterus, normal oral cavity mucosa Neck: Supple, no lymphadenopathy Chest: No trauma noted Cardiovascular: Regular rhythm, normal rate, no murmurs Respiratory: Bilateral air entry noted, lungs clear to auscultation bilaterally. No accessory muscle use Abdominal: Abdomen is soft, nontender, nondistended. Bowel sounds were normal. No hepatomegaly or splenomegaly Musculoskeletal: No deformity noted Extremities: No edema noted Skin: No rash or lesions Neurologic: Alert and oriented x3, no grossly evident neurologic deficits noted. Full neurological exam was not performed Psychiatric: Appropriate mood and affect Vitals VITALS Vital Signs Date Time Temp Pulse Resp B/P (MAP) Pulse Ox O2 Delivery O2 Flow Rate FiO2 09/03/21 08:15 Room Air 09/03/21 07:00 98.3 74 18 109/57 (74) 96 98.3 Assessment/Plan Assessment/Plan Assessment: GE junction mass, likely adenocarcinoma Suspected liver metastasis Dysphagia Weight loss and protein calorie malnutrition from dysphagia Recommendations: -We discussed results of CT CAP. 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 Plan to wait for EGD biopsy results -Would plan on adding microsatellite instability testing and HER-2 FISH -We discussed the management of advanced GE junction adenocarcinoma. We discussed that palliative systemic therapy is the mainstay of treatment. -Given presence of multifocal liver metastasis, suspect these are not amenable to surgical resection -We will arrange outpatient follow-up with medical oncology. No additional inpatient oncology work-up required. DC per hospitalist James Vera MD Medical Oncology/Hematology Ph: [phone] LAURITA VERA MD Sep 03, 2021 12:20
--- NOTE | 2021-09-03 12:44 | PDOC ---
[employer] PROGRESS NOTE Date of Service DOS: DATE: 09/03/21 TIME: 12:42 Chief Complaint Chief Complaint Esophageal stricture versus malignancy? 20 pound weight loss History of Present Illness History of Present Illness 09/03/2021 Patient seen and examined He was resting with no apparent distress EGD results reviewed see the following; Findings: E--narrowing suggestiive of extrinsic compression at 44-45cm. No Reid's or signs of reflux. Able to pass into stomach with some difficulty. G--Large tumor encircling cardia suggestive of adenoCa at GE junction. Biopsies taken. Distal stomach normal. Biopsied antrum. D--Normal to second portion. His long-term prognosis is probably very poor Discussed with RN Discussed with case management Awaiting biopsy report 09/02/2021 Patient seen and examined He has a friend present Agreed to discuss his medical condition and care with his friend present I explained I was concerned about his CAT scan report and would get a second opinion from oncology Discussed with RN Chart reviewed CT results as follows: Impression: 1. Distal esophageal/esophageal gastric junction masslike thickening, concerning for primary malignancy. Recommend direct visualization and biopsy. 2. Mildly distended fluid-filled esophagus. 3. Solid ill-defined hepatic masses, concerning for metastasis. MRI with and without contrast can further evaluate if clinically indicated. 4. Mildly enlarged upper abdominal lymph nodes concerning for metastasis. 09/01/2021 Patient seen and examined He is trying to keep Jell-O down but having difficulty A little less anxious than yesterday but very concerned Discussed with RN Chart reviewed CAT scan showing possible malignancy at the distal esophagus He is going for EGD tomorrow We will also consult heme-onc 08/31/2021 Patient seen and examined He seems to be agitated he is having problems swallowing Trying to drink a clear liquid diet Discussed with RN Chart reviewed Images reviewed Vitals/I&O Vitals/I&O: Vital Signs Date Time Temp Pulse Resp B/P (MAP) Pulse Ox O2 Delivery O2 Flow Rate FiO2 09/03/21 11:00 97.8 84 18 105/70 (82) 97 97.8 09/03/21 08:15 Room Air I & O 09/02/21 09/02/21 09/03/21 15:00 23:00 07:00 Intake Total 500 ml 240 ml Output Total 1 ml Balance -1 ml 500 ml 240 ml Physical Exam General: No acute distress Heart: Regular rate Lungs: Clear Abdomen: Normal bowel sounds Extremities: No clubbing, No cyanosis Assessment and Plan Assessmemt and Plan Problems Medical Problems: (1) Esophageal stricture Status: 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 Medications: Current Medications Medications (Trade) Dose Ordered Sig/Meghann Route PRN Reason Start Time Stop Time Status Last Admin Dose Admin Ringer's Solution 1,000 ml @ 100 mls/hr Q10H IV 09/02/21 13:30 09/03/21 08:24 Lorazepam (Ativan Inj) 2 mg PRN Q6HRS PRN IVP ANXIETY / AGITATION (SEVERE) 09/02/21 16:30 09/02/21 17:16 Justifications for Admission Other Justification JORGE LUIS BAUMANN III DO Sep 03, 2021 12:43
[2021-09-03] MEDS ORDERED: ALPR0.5T PO (13:09)
[2021-09-03] MEDS ORDERED: PANT20TA2 PO (13:09)
--- NOTE | 2021-09-03 13:47 | DS ---
DATE OF DISCHARGE: 09/03/2021 ADMITTING DIAGNOSES: Possible esophageal stricture with severe dysphagia. 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 CONSULTS: GI. PROCEDURES: EGD with biopsies. HOSPITAL COURSE: The patient is a pleasant 51-year-old male who presented with severe dysphagia. We thought he might have a stricture, but when we did a CAT scan, it was suspicious for malignancy. Dr. Ny did an EGD. It did show a large mass at the gastroesophageal junction and the cardia. Biopsies were taken. Today, the patient is seen and examined. He is at his baseline, but somewhat anxious. He wants to go home. He is going to be a few days before his biopsy report is back. The Oncology office has called and explained that they have an appointment for him next week. We will go ahead and discharge and have him see Oncology next week to get his official biopsy report. DISPOSITION: Home. ACTIVITY: As tolerated. DIET: Low sodium. MEDICATIONS: I sent a prescription for Xanax 0.5 mg p.o. b.i.d. p.r.n. and Protonix 40 a day. TOTAL TIME: 32 minutes. BALAJI/CLINTON DR: Ishan TID: [id number]
--- NOTE | 2021-09-03 13:54 | NUR ---
pt was discharged home with self care. two scripts were sent to his pharmacy(xanax and pantoprazole). he was given an appt at the oncology dept for next Sep 10 at 2:30. He was taken home by his daughter and with instructions for a clear diet. Moustapha Melara RN
--- NOTE | 2021-09-04 16:12 | PATHOLOGY ---
[facility] Accession Number: [id number] . 01 Material submitted: . PART A: cardia - CARDIA TUMOR BIOPSY PART B: stomach - ANTRUM BIOPSY . 01 Clinical history: . ESOPHAGEAL STRICTURE EGD . 02 Diagnosis: A. Gastric biopsies, gastric cardia tumor: - ADENOCARCINOMA, MODERATELY TO POORLY DIFFERENTIATED. SEE COMMENT. . B. Gastric biopsies, gastric antrum: - Chronic gastritis, mild. LBQ 09/03/2021 1410 Local . 02 Comment: Sections of the gastric cardia biopsy reveal segments of gastric mucosa showing areas of replacement by a malignant epithelial neoplasm. Tumor cells form fused glands and also have a solid nested appearance. The tumor cells possess enlarged, moderately pleomorphic rounded to ovoid nuclei containing prominent nucleoli. Mitotic figures are present. A properly controlled immunoperoxidase stain for Helicobacter is negative for Helicobacter organisms. . Sections of the gastric antral biopsy show congestion and mild chronic inflammation. A properly controlled immunoperoxidase stain for Helicobacter is negative for Helicobacter organisms. . The case is also examined by Dr. Fields, who concurs with the diagnosis on 09/04/2021. The results are reported to Dr. Ny on 09/03/21 at 1:05 p.m. (JPM/db; 09/03/2021) . Special stain performed: Immunoperoxidase stain for Helicobacter on A1 and B1 . 02 Electronically signed: . Jac Kelley MD, Pathologist NPI- [id number] . 01 Gross description: . A. The specimen is submitted in formalin, labeled "Hernandez, Gloriamehnaz, cardia tumor biopsy". Received are multiple segments of pale kilpatrick tissue measuring 1.3 x 0.5 x 0.1 cm in aggregate dimensions. The specimen is submitted entirely in cassette A1. . B. The specimen is submitted in formalin, labeled "Diazmendoza, Absalon, antrum BX". Received are 2 segments of pale kilpatrick tissue measuring 0.4 to 0.5 cm in maximum dimensions. The specimen is submitted entirely in cassette B1. ([facility]; 09/02/2021) NRI/NRI 09/03/2021 1405 Local . 02 Pathologist provided ICD-10: C16.0, K29.50 . 02 CPT . 758623, 942629, [id number] Specimen Comment: A courtesy copy of this report has been sent to [phone], [phone] Specimen Comment: [id number] Specimen Comment: Report sent to / DR WOO Performed at: 01 [facility] [address], [place] [id number] MD Mychal Fields MD Phone: [phone] Performed at: 02 [facility] [address], [place] [id number] MD Jac Kelley MD Phone: [phone]
== END 2021-09-03 13:55 | disposition home or self-care (01) | DRG 375 ==
LOC: ER 10:28 → 5 SOUTH 13:20
PROVIDERS: ADMIT Student in an Organized Health Care Education/Training Program; ATTEND Student in an Organized Health Care Education/Training Program
PROC: 0DB68ZX Excision of Stomach, Via Natural or Artificial Opening Endoscopic, Diagnostic (ICD-10-PCS; principal; 2021-09-02 14:00)
DX: C16.0 Malignant neoplasm of cardia (principal); E46 Unspecified protein-calorie malnutrition; K22.2 Esophageal obstruction; K22.0 Achalasia of cardia; T17.228A Food in pharynx causing other injury, initial encounter; T18.128A Food in esophagus causing other injury, initial encounter; Z90.49 Acquired absence of other specified parts of digestive tract; Z68.22 Body mass index [BMI] 22.0-22.9, adult; Z20.822 Contact with and (suspected) exposure to COVID-19
CPT/HCPCS: 36415; 43239; 71260; 74177; 74220; 80048; 80053; 83690; 83735; 85025; 87426; 88305; 88342; 96361; 96374; C9113; J0780; J2060; J2270; J2405; J2704; J3490; J7030; J7120; Q9967; U0003; U0005; 99285-25; G0378